=== PATIENT | female | born 1940 | race Caucasian/White ===

== ENCOUNTER 2019-09-07 14:02 | Emergency (ER) | payer MEDICARE ==
[~2019-09-07] VITALS: Ht 144.8 cm; Wt 61.2 kg
--- NOTE | 2019-09-07 15:39 | Diagnostic Imaging Report ---
EXAM: CHEST SINGLE (NOT PORTABLE) DATE: 09/07/2019 2:38 PM INDICATION: Shortness of breath COMPARISON: None FINDINGS: Left-sided pacing device identified with 2 subclavian coursing leads with tips terminating over the expected location of the right atrium and ventricle. The trachea is midline. There are mildly increased left basilar opacity suggestive of atelectasis. There is no evidence for large focal consolidation, pneumothorax, or significant pleural effusion. The cardiomediastinal silhouette is magnified by technique but otherwise unremarkable. Atherosclerotic calcifications are noted within the thoracic aorta. Degenerative changes noted of the visualized spine. No acute osseous abnormality is identified. IMPRESSION: Left basilar atelectasis. No other acute cardiopulmonary process identified. Signed by: Dr. Abdullahi Sue MD on 09/07/2019 3:35 PM
[2019-09-07 16:01] LABS: CLARITY,URINE SL CLOUDY (CLEAR); COLOR,URINE YELLOW (YELLOW); LEUKOCYTE ESTERASE ,URINE TRACE (NEGATIVE); NITRITE,URINE POSITIVE (NEGATIVE); PROTEIN,URINE DIPSTICK 1+ (NEGATIVE)
[2019-09-07 16:02] LABS: BILIRUBIN,URINE 1+ (NEGATIVE); KETONES,URINE TRACE (NEGATIVE); URINE UROBILINOGEN 1 mg/dL (0.2 - 1)
[2019-09-07 16:09] LABS: BACTERIA,URINE MODERATE /HPF; EPITHELIAL CELLS,URINE MODERATE /LPF
[2019-09-07] MEDS ORDERED: IPRATROPIUM BROMIDE 0.02% 2.5 ML NEB NEB STA (16:39)
[2019-09-07] MEDS ORDERED: METHYLPREDNISOLONE SOD SUCC 125 MG/2ML VIAL IV STA (16:39)
[2019-09-07] MEDS ORDERED: SODIUM CHLORIDE 0.9% 1000ML 1,000 ML IV STA (16:39)
[2019-09-07] MEDS ORDERED: ALBUTEROL SULF 0.083% NEB SOLN 3 ML NEB NEB STA (16:39)
[2019-09-07] MEDS ORDERED: LEVOFLOXACIN 500 MG TAB PO NR (16:45)
[2019-09-07] MEDS ORDERED: PREDNISONE 20 MG TAB PO NR (16:45)
[2019-09-07] MEDS ORDERED: LEVOFLOXACIN 250 MG TAB PO NR (16:45)
[2019-09-07 17:23] LABS: BASOPHILS % 0.1 % (0.0-1.0); HEMATOCRIT 31.9 % (34.2-44.1); HEMOGLOBIN 8.8 g/dL (12.0-16.0); LYMPHOCYTES # (AUTO) 0.3 (1.0-3.2); MEAN CORPUSCULAR HEMOGLOBIN 21.8 pg (28-32); MEAN CORPUSCULAR HGB CONC 27.6 g/dL (31-35); MEAN CORPUSCULAR VOLUME 79.2 fL (81-99); MONOCYTES # (AUTO) 0.8 (0.2-0.8); MONOCYTES % 4.6 % (4.4-11.3); NEUTROPHILS # (AUTO) 15.1 (2.1-6.9); NEUTROPHILS % 92.7 % (38.7-80.0); PLATELET COUNT 417 x10e3/uL (140-360); RED BLOOD COUNT 4.03 x10e6/uL (3.6-5.1); RED CELL DISTRIBUTION WIDTH 19.1 % (11.7-14.4)
[2019-09-07 17:27] LABS: INR 0.97; PROTHROMBIN TIME 13.4 seconds (11.9-14.5)
[2019-09-07 17:28] LABS: PARTIAL THROMBOPLASTIN TIME 26.5 seconds (23.8-35.5)
[2019-09-07 17:37] LABS: ALANINE AMINOTRANSFERASE 22 IU/L (0-55); ALBUMIN 3.5 g/dL (3.5-5.0); ALBUMIN/GLOBULIN RATIO 1.3 (0.8-2.0); ALKALINE PHOSPHATASE 55 IU/L (40-150); ANION GAP 13.5 mmol/L (8-16); BLOOD UREA NITROGEN 18 mg/dL (7-26); BUN/CREATININE RATIO 21 (6-25); CALCIUM 8.8 mg/dL (8.4-10.2); CARBON DIOXIDE 28 mmol/L (22-29); CHLORIDE 106 mmol/L (98-107); CREATINE KINASE 47 IU/L (29-168); CREATININE, SERUM 0.84 mg/dL (0.57-1.11); EST GLOMERULAR FILTRATION RATE > 60 ML/MIN (60-); GLUCOSE 173 mg/dL (74-118); POTASSIUM 3.5 mmol/L (3.5-5.1); SODIUM 144 mmol/L (136-145)
[2019-09-07 19:26] VITALS: BP 141/63
[2019-09-07 20:38] LABS: HYPOCHROMASIA MODERATE; RBC MORPHOLOGY COMMENT ABNORMAL
--- OUTSIDE RECORDS SUMMARY | 2019-09-10 13:34 | XMS REPORT ---
Author Author [facility] Address Unknown Phone Unavailable Care Team Providers Care Compensation Adjuster Name Role Phone TAYO MARTÍNEZ Unavailable Unavailable Payers Payer Name Policy Type Policy Number Effective Date Expiration Date Problems This patient has no known problems. Allergies, Adverse Reactions, Alerts Allergy Name Allergy Type Status Severity Reaction(s) Onset Date Inactive Date Treating Clinician Comments hydrocodone DA Active MO 2018-12-08 00:00:00 COLOGNES DA Active SV 2018-12-08 00:00:00 fire ant DA Active SV 2016-01-15 00:00:00 AEROSOL PRODUCTS LIKE AIR FRESHENER DA Active SV 2016-01-15 00:00:00 COLOGNES DA Active SV 2016-01-15 00:00:00 HERBAL BODY WASHES AND SPRAYS DA Active SV 2016-01-15 00:00:00 HOUSEHOLD CLEANING PRODUCTS DA Active SV 2016-01-15 00:00:00 LATEX GLOVES DA Active SV 2016-01-15 00:00:00 MSG DA Active SV 2016-01-15 00:00:00 PERFUMES DA Active SV 2016-01-15 00:00:00 SCENTED HAIR SPRAYS DA Active SV 2016-01-15 00:00:00 Medications This patient has no known medications. Results Test Description Test Time Test Comments Text Results Atomic Results Result Comments CHEST SINGLE (NOT PORTABLE) 2019-09-07 15:34:[address] [address] Patient Name: RONALD HALE MR #: [id number] : 1940 Age/Sex: 79/F Req #: [id number] Adm Physician: Ordered by: TAYO MARTÍNEZ MD, MD Report #: [id number] Location: ER Room/Bed: Procedure: [id number] DX/CHEST SINGLE (NOT PORTABLE) Exam Date: 09/07/19 Exam Time: 1510 REPORT STATUS: Signed EXAM: CHEST SINGLE (NOT PORTABLE) DATE: 09/07/2019 2:38 PM INDICATION: Shortness of breath COMPARISON: None FINDINGS: Left-sided pacing device identified with 2 subclavian coursing leads with tips terminating over the expected location of the right atrium and ventricle. The trachea is midline. There are mildly increased left basilar opacity suggestive of atelectasis. There is no evidence for large focal consolidation, pneumothorax, or significant pleural effusion. The cardiomediastinal silhouette is magnified by technique but otherwise unremarkable. Atherosclerotic calcifications are noted within the thoracic aorta. Degenerative changes noted of the visualized spine. No acute osseous abnormality is identified. IMPRESSION: Left basilar atelectasis. No other acute cardiopulmonary process identified. Signed by: Dr. Abdullahi Sue MD on 09/07/2019 3:35 PM Dictated By: ABDULLAHI SUE MD 153 Transcribed By: HAYLEE on 09/07/19 1535 COPY TO: TAYO MARTÍNEZ GLUBED 2018-12-11 18:03:00 GLUBED (test code=GLUBED) 234 MG/DL 74-106 CBC W/AUTO [id number] 05:58:00* Test Item Value Reference Range Comments WHITE BLOOD CELL (test code=WBC) 12.0 x10 3/uL 5.0-12.0 RED BLOOD CELL (test code=RBC) 3.77 x10 6/uL 4.20-5.40 HEMOGLOBIN (test code=HGB) 10.1 g/dL 12.0-16.0 HEMATOCRIT (test code=HCT) 35.3 % 36.0-46.0 MEAN CELL VOLUME (test code=MCV) 94 fL 81-99 MEAN CELL HGB (test code=MCH) 26.8 pg 27-31 MEAN CELL HGB CONCENTRATION (test code=MCHC) 28.6 g/dL 33-37 RED CELL DISTRIBUTION WIDTH (test code=RDW) 18.8 % 11.5-15.5 PLATELET COUNT (test code=PLT) 244 x10 3/uL 130-400 MEAN PLATELET VOLUME (test code=MPV) 9.0 fL 9.4-16.4 NEUTROPHIL % (test code=NT%) 89.9 % 43-65 IMMATURE GRANULOCYTE % (test code=IG%) 0.6 % 0.0-2.0 LYMPHOCYTE % (test code=LY%) 7.2 % 20.5-45.5 MONOCYTE % (test code=MO%) 2.3 % 5.5-11.7 EOSINOPHIL % (test code=EO%) 0.0 % 0.9-2.9 BASOPHIL % (test code=BA%) 0.0 % 0.2-1.0 NUCLEATED RBC % (test code=NRBC%) 0.0 % 0-1.0 NEUTROPHIL # (test code=NT#) 10.78 x10 3/uL 2.2-4.8 IMMATURE GRANULOCYTE # (test code=IG#) 0.07 x10 3/uL 0-0.03 LYMPHOCYTE # (test code=LY#) 0.86 x10 3/uL 1.3-2.9 MONOCYTE # (test code=MO#) 0.28 x10 3/uL 0.3-0.8 EOSINOPHIL # (test code=EO#) 0.00 x10 3/uL 0.0-0.2 BASOPHIL # (test code=BA#) 0.00 x10 3/uL 0.0-0.1 PLATELET ESTIMATE (test code=PLTEST) ADEQUATE ADEQUATE PLATELET MORPHOLOGY (test code=PLTMORPH) NORMAL NORMAL DIFFERENTIAL [id number] 05:58:00* Test Item Value Reference Range Comments ANISOCYTOSIS (test code=ANISO) 1+ NONE SEEN MICROCYTOSIS (test code=MICR) 1+ NONE SEEN BASIC METABOLIC [id number] 05:46:00* Test Item Value Reference Range Comments SODIUM (test code=NA) 138 mmol/L 137-145 POTASSIUM (test code=K) 3.9 mmol/L 3.4-5.0 CHLORIDE (test code=CL) 99 mmol/L 98-107 CARBON DIOXIDE (test code=CO2) 36 mmol/L 22-30 GLUCOSE (test code=GLU) 181 mg/dL 74-106 BLOOD UREA NITROGEN (test code=BUN) 19 mg/dL 7-17 GLOMERULAR FILTRATION RATE (test code=GFR) >=60 max estimate >60 The estimated glomerular filtration rate is computed usingpatient race, age (>18), sex, and serum creatinine. If anyof the needed data elements are missing the Laboratory cannot compute an estimation of the glomerular filtration rate. CREATININE (test code=CREAT) 0.7 mg/dL 0.5-1.0 CALCIUM (test code=CA) 8.2 mg/dL 8.4-10.2 CBC W/AUTO [id number] 05:32:00* Test Item Value Reference Range Comments WHITE BLOOD CELL (test code=WBC) 12.0 x10 3/uL 5.0-12.0 RED BLOOD CELL (test code=RBC) 3.77 x10 6/uL 4.20-5.40 HEMOGLOBIN (test code=HGB) 10.1 g/dL 12.0-16.0 HEMATOCRIT (test code=HCT) 35.3 % 36.0-46.0 MEAN CELL VOLUME (test code=MCV) 94 fL 81-99 MEAN CELL HGB (test code=MCH) 26.8 pg 27-31 MEAN CELL HGB CONCENTRATION (test code=MCHC) 28.6 g/dL 33-37 RED CELL DISTRIBUTION WIDTH (test code=RDW) 18.8 % 11.5-15.5 PLATELET COUNT (test code=PLT) 244 x10 3/uL 130-400 MEAN PLATELET VOLUME (test code=MPV) 9.0 fL 9.4-16.4 NEUTROPHIL % (test code=NT%) 89.9 % 43-65 IMMATURE GRANULOCYTE % (test code=IG%) 0.6 % 0.0-2.0 LYMPHOCYTE % (test code=LY%) 7.2 % 20.5-45.5 MONOCYTE % (test code=MO%) 2.3 % 5.5-11.7 EOSINOPHIL % (test code=EO%) 0.0 % 0.9-2.9 BASOPHIL % (test code=BA%) 0.0 % 0.2-1.0 NUCLEATED RBC % (test code=NRBC%) 0.0 % 0-1.0 NEUTROPHIL # (test code=NT#) 10.78 x10 3/uL 2.2-4.8 IMMATURE GRANULOCYTE # (test code=IG#) 0.07 x10 3/uL 0-0.03 LYMPHOCYTE # (test code=LY#) 0.86 x10 3/uL 1.3-2.9 MONOCYTE # (test code=MO#) 0.28 x10 3/uL 0.3-0.8 EOSINOPHIL # (test code=EO#) 0.00 x10 3/uL 0.0-0.2 BASOPHIL # (test code=BA#) 0.00 x10 3/uL 0.0-0.1 CBC W/AUTO [id number] 05:32:00* Test Item Value Reference Range Comments WHITE BLOOD CELL (test code=WBC) 12.0 x10 3/uL 5.0-12.0 RED BLOOD CELL (test code=RBC) 3.77 x10 6/uL 4.20-5.40 HEMOGLOBIN (test code=HGB) 10.1 g/dL 12.0-16.0 HEMATOCRIT (test code=HCT) 35.3 % 36.0-46.0 MEAN CELL VOLUME (test code=MCV) 94 fL 81-99 MEAN CELL HGB (test code=MCH) 26.8 pg 27-31 MEAN CELL HGB CONCENTRATION (test code=MCHC) 28.6 g/dL 33-37 RED CELL DISTRIBUTION WIDTH (test code=RDW) 18.8 % 11.5-15.5 PLATELET COUNT (test code=PLT) 244 x10 3/uL 130-400 MEAN PLATELET VOLUME (test code=MPV) 9.0 fL 9.4-16.4 NEUTROPHIL % (test code=NT%) 89.9 % 43-65 IMMATURE GRANULOCYTE % (test code=IG%) 0.6 % 0.0-2.0 LYMPHOCYTE % (test code=LY%) 7.2 % 20.5-45.5 MONOCYTE % (test code=MO%) 2.3 % 5.5-11.7 EOSINOPHIL % (test code=EO%) 0.0 % 0.9-2.9 BASOPHIL % (test code=BA%) 0.0 % 0.2-1.0 NUCLEATED RBC % (test code=NRBC%) 0.0 % 0-1.0 NEUTROPHIL # (test code=NT#) 10.78 x10 3/uL 2.2-4.8 IMMATURE GRANULOCYTE # (test code=IG#) 0.07 x10 3/uL 0-0.03 LYMPHOCYTE # (test code=LY#) 0.86 x10 3/uL 1.3-2.9 MONOCYTE # (test code=MO#) 0.28 x10 3/uL 0.3-0.8 EOSINOPHIL # (test code=EO#) 0.00 x10 3/uL 0.0-0.2 BASOPHIL # (test code=BA#) 0.00 x10 3/uL 0.0-0.1 [id number] 17:49:00* Test Item Value Reference Range Comments GLUBED (test code=GLUBED) 109 MG/DL 74-106 [id number] 15:14:00* Test Item Value Reference Range Comments ACT-ISTAT (test code=ACTI) 109 SEC 74-125 [id number] 15:00:00* Test Item Value Reference Range Comments GLUBED (test code=GLUBED) 160 MG/DL 74-106 [id number] 14:44:00* Test Item Value Reference Range Comments ACT-ISTAT (test code=ACTI) 246 SEC 74-125 [id number] 14:44:00* Test Item Value Reference Range Comments ACT-ISTAT (test code=ACTI) 219 SEC 74-125 [id number] 14:44:00* Test Item Value Reference Range Comments ACT-ISTAT (test code=ACTI) 120 SEC 74-125 CBC W/AUTO [id number] 18:17:00* Test Item Value Reference Range Comments WHITE BLOOD CELL (test code=WBC) 11.0 x10 3/uL 5.0-12.0 RED BLOOD CELL (test code=RBC) 4.05 x10 6/uL 4.20-5.40 HEMOGLOBIN (test code=HGB) 10.9 g/dL 12.0-16.0 HEMATOCRIT (test code=HCT) 38.3 % 36.0-46.0 MEAN CELL VOLUME (test code=MCV) 95 fL 81-99 MEAN CELL HGB (test code=MCH) 26.9 pg 27-31 MEAN CELL HGB CONCENTRATION (test code=MCHC) 28.5 g/dL 33-37 RED CELL DISTRIBUTION WIDTH (test code=RDW) 17.3 % 11.5-15.5 PLATELET COUNT (test code=PLT) 306 x10 3/uL 130-400 MEAN PLATELET VOLUME (test code=MPV) 9.3 fL 9.4-16.4 NEUTROPHIL % (test code=NT%) 91.0 % 43-65 IMMATURE GRANULOCYTE % (test code=IG%) 0.7 % 0.0-2.0 LYMPHOCYTE % (test code=LY%) 6.5 % 20.5-45.5 MONOCYTE % (test code=MO%) 1.7 % 5.5-11.7 EOSINOPHIL % (test code=EO%) 0.0 % 0.9-2.9 BASOPHIL % (test code=BA%) 0.1 % 0.2-1.0 NUCLEATED RBC % (test code=NRBC%) 0.0 % 0-1.0 NEUTROPHIL # (test code=NT#) 10.01 x10 3/uL 2.2-4.8 IMMATURE GRANULOCYTE # (test code=IG#) 0.08 x10 3/uL 0-0.03 LYMPHOCYTE # (test code=LY#) 0.72 x10 3/uL 1.3-2.9 MONOCYTE # (test code=MO#) 0.19 x10 3/uL 0.3-0.8 EOSINOPHIL # (test code=EO#) 0.00 x10 3/uL 0.0-0.2 BASOPHIL # (test code=BA#) 0.01 x10 3/uL 0.0-0.1 PLATELET ESTIMATE (test code=PLTEST) ADEQUATE ADEQUATE DIFFERENTIAL [id number] 18:17:00* Test Item Value Reference Range Comments POLYCHROMASIA (test code=POLC) 1+ NONE SEEN ANISOCYTOSIS (test code=ANISO) 1+ NONE SEEN MICROCYTOSIS (test code=MICR) 1+ NONE SEEN ELLIPTOCYTES (test code=ELL) 1+ NONE SEEN BASIC METABOLIC [id number] 17:30:00* Test Item Value Reference Range Comments SODIUM (test code=NA) 139 mmol/L 137-145 POTASSIUM (test code=K) 4.4 mmol/L 3.4-5.0 CHLORIDE (test code=CL) 100 mmol/L 98-107 CARBON DIOXIDE (test code=CO2) 36 mmol/L 22-30 GLUCOSE (test code=GLU) 174 mg/dL 74-106 BLOOD UREA NITROGEN (test code=BUN) 26 mg/dL 7-17 GLOMERULAR FILTRATION RATE (test code=GFR) >=60 max estimate >60 The estimated glomerular filtration rate is computed usingpatient race, age (>18), sex, and serum creatinine. If anyof the needed data elements are missing the Laboratory cannot compute an estimation of the glomerular filtration rate. CREATININE (test code=CREAT) 0.7 mg/dL 0.5-1.0 CALCIUM (test code=CA) 8.5 mg/dL 8.4-10.2 [id number] 17:30:00* Test Item Value Reference Range Comments MAGNESIUM (test code=MAG) 1.9 mg/dL 1.6-2.3 - XR CHEST 2 [id number] 17:26:00 FAX: Joe Quesada [phone] [place]: St: PRE Name: RONALD DAWN [facility] : [birth year] Age/S: 78/F [id number] Unit #: [id number] Loc: [place] [place] [id number] Phys: Joe Maldonado MD Acct: [id number] Dis Date: Status: PRE IN PHONE #: [phone] Exam Date: 12/08/2018 2921 FAX #: [phone] Reason: PREOP EXAMS: CPT CODE: [id number] XR CHEST 2 V 44704 C3 TIME OF STUDY: 2:24 PM REASON FOR EXAM: PREOP COM PARISON: January 15, 2016 FINDINGS: PA and lateral upright views o f the chest were obtained. Lungs: Lungs are hyperaerated with fla ttened hemidiaphragm. No mass, or consolidation. Normal pulmonary vascula rity. Pleura: No pleural effusion or pneumothorax. Heart and Mediastinum: Normal cardiomediastinal silhouette and christofer cific atherosclerosis. Bones: Normal regional skeletal structures. IMPRESSION: 1. Findings of obstructive lung d isease. No focal consolidation. at 3243 Reported and signed by: Kalin Gong MD CC: Joe Maldonado MD Technologist: Catrachita Barnett Trnscrd Date/Time/By: 12/08/2018 (6131) : By: [email or web address] PAGE 1 Signed Report FAX: Joe Quesada [phone] [place]: St: PRE Name: RONALD HALE [facility] : 1940 Age/S: 78/F [address] Unit #: [id number] Loc: [place] [address] Phys: Joe Maldonado MD Acct: [id number] Dis Date: Status: PRE IN PHONE #: [phone] Exam Date: 12/08 1548 FAX #: [phone] Reason: PREOP EXAMS: CPT CODE: [id number] XR CHEST 2 V [id number] <Continued> Orig Print D/T: S: 12/08/2018 (0380) PAGE 2 Signed Report BASIC METABOLIC [id number] 17:19:00* Test Item Value Reference Range Comments SODIUM (test code=NA) 139 mmol/L 137-145 POTASSIUM (test code=K) 4.4 mmol/L 3.4-5.0 CHLORIDE (test code=CL) 100 mmol/L 98-107 CARBON DIOXIDE (test code=CO2) 36 mmol/L 22-30 GLUCOSE (test code=GLU) 174 mg/dL 74-106 BLOOD UREA NITROGEN (test code=BUN) 26 mg/dL 7-17 GLOMERULAR FILTRATION RATE (test code=GFR) >=60 max estimate >60 The estimated glomerular filtration rate is computed usingpatient race, age (>18), sex, and serum creatinine. If anyof the needed data elements are missing the Laboratory cannot compute an estimation of the glomerular filtration rate. CREATININE (test code=CREAT) 0.7 mg/dL 0.5-1.0 CALCIUM (test code=CA) 8.5 mg/dL 8.4-10.2 [id number] 17:19:00* Test Item Value Reference Range Comments MAGNESIUM (test code=MAG) mg/dL 1.6-2.3 PROTHROMBIN [id number] 17:14:00* Test Item Value Reference Range Comments PROTHROMBIN TIME PATIENT (test code=PTP) 11.1 SECONDS 9.2-12.1 INTERNATIONAL NORMAL RATIO (test code=INR) 1.0 The INR is to be used only for monitoring ORAL ANTICOAGULANTTHERAPY. Indication INR Value1. Prophylaxis/treatment of: Venous Thrombosis, Pulmonary Embolism 2.0 - 3.02. Prevention of systemic embolism from: Tissue heart valves 2.0 - 3.0 Acute myocardial infarction (to present systemic embolism)* 2.0 - 3.0 Valvular heart disease 2.0 - 3.0 Atrial fibrillation 2.0 - 3.03. Mechanical prosthetic valves (high risk) 2.5 - 3.5 * If oral anticoagulant therapy is elected to preventrecurrent myocardial infarction, an INR of 2.5-3.5 isrecommended, consistent with Food and Drug Administrationrecommendations. IS PATIENT ON ANTICOAGULANTS ? [facility] Comments: PREOPTHROMBOPLASTIN TIME PARTIAL 2018-12-08 17:14:00* Test Item Value Reference Range Comments THROMBOPLASTIN TIME PARTIAL (test code=PTT) 25.0 SECONDS 23.4-37.0 Therapeutic Range for Heparin EFFECTIVE 03/31/13 Heparin IU/mL aPTT Seconds0.3 64.30.7 88.8 IS PATIENT ON ANTICOAGULANTS ? [facility] Comments: PREOPCBC W/AUTO [id number] 17:11:00* Test Item Value Reference Range Comments WHITE BLOOD CELL (test code=WBC) 11.0 x10 3/uL 5.0-12.0 RED BLOOD CELL (test code=RBC) 4.05 x10 6/uL 4.20-5.40 HEMOGLOBIN (test code=HGB) 10.9 g/dL 12.0-16.0 HEMATOCRIT (test code=HCT) 38.3 % 36.0-46.0 MEAN CELL VOLUME (test code=MCV) 95 fL 81-99 MEAN CELL HGB (test code=MCH) 26.9 pg 27-31 MEAN CELL HGB CONCENTRATION (test code=MCHC) 28.5 g/dL 33-37 RED CELL DISTRIBUTION WIDTH (test code=RDW) 17.3 % 11.5-15.5 PLATELET COUNT (test code=PLT) 306 x10 3/uL 130-400 MEAN PLATELET VOLUME (test code=MPV) 9.3 fL 9.4-16.4 NEUTROPHIL % (test code=NT%) 91.0 % 43-65 IMMATURE GRANULOCYTE % (test code=IG%) 0.7 % 0.0-2.0 LYMPHOCYTE % (test code=LY%) 6.5 % 20.5-45.5 MONOCYTE % (test code=MO%) 1.7 % 5.5-11.7 EOSINOPHIL % (test code=EO%) 0.0 % 0.9-2.9 BASOPHIL % (test code=BA%) 0.1 % 0.2-1.0 NUCLEATED RBC % (test code=NRBC%) 0.0 % 0-1.0 NEUTROPHIL # (test code=NT#) 10.01 x10 3/uL 2.2-4.8 IMMATURE GRANULOCYTE # (test code=IG#) 0.08 x10 3/uL 0-0.03 LYMPHOCYTE # (test code=LY#) 0.72 x10 3/uL 1.3-2.9 MONOCYTE # (test code=MO#) 0.19 x10 3/uL 0.3-0.8 EOSINOPHIL # (test code=EO#) 0.00 x10 3/uL 0.0-0.2 BASOPHIL # (test code=BA#) 0.01 x10 3/uL 0.0-0.1 CBC W/AUTO [id number] 17:11:00* Test Item Value Reference Range Comments WHITE BLOOD CELL (test code=WBC) 11.0 x10 3/uL 5.0-12.0 RED BLOOD CELL (test code=RBC) 4.05 x10 6/uL 4.20-5.40 HEMOGLOBIN (test code=HGB) 10.9 g/dL 12.0-16.0 HEMATOCRIT (test code=HCT) 38.3 % 36.0-46.0 MEAN CELL VOLUME (test code=MCV) 95 fL 81-99 MEAN CELL HGB (test code=MCH) 26.9 pg 27-31 MEAN CELL HGB CONCENTRATION (test code=MCHC) 28.5 g/dL 33-37 RED CELL DISTRIBUTION WIDTH (test code=RDW) 17.3 % 11.5-15.5 PLATELET COUNT (test code=PLT) 306 x10 3/uL 130-400 MEAN PLATELET VOLUME (test code=MPV) 9.3 fL 9.4-16.4 NEUTROPHIL % (test code=NT%) 91.0 % 43-65 IMMATURE GRANULOCYTE % (test code=IG%) 0.7 % 0.0-2.0 LYMPHOCYTE % (test code=LY%) 6.5 % 20.5-45.5 MONOCYTE % (test code=MO%) 1.7 % 5.5-11.7 EOSINOPHIL % (test code=EO%) 0.0 % 0.9-2.9 BASOPHIL % (test code=BA%) 0.1 % 0.2-1.0 NUCLEATED RBC % (test code=NRBC%) 0.0 % 0-1.0 NEUTROPHIL # (test code=NT#) 10.01 x10 3/uL 2.2-4.8 IMMATURE GRANULOCYTE # (test code=IG#) 0.08 x10 3/uL 0-0.03 LYMPHOCYTE # (test code=LY#) 0.72 x10 3/uL 1.3-2.9 MONOCYTE # (test code=MO#) 0.19 x10 3/uL 0.3-0.8 EOSINOPHIL # (test code=EO#) 0.00 x10 3/uL 0.0-0.2 BASOPHIL # (test code=BA#) 0.01 x10 3/uL 0.0-0.1
[2019-10-02] MEDS ORDERED: NORCO 10-325 T1 EACH PO (04:46)
[2019-10-11] MEDS ORDERED: XOPENEX0.63 MG/3 INH (09:37)
[2019-10-11] MEDS ORDERED: PREDNISONE10 MG PO (09:53)
[2019-10-11] MEDS ORDERED: XOPENEX INH (09:53)
== END 2019-09-07 19:32 | disposition home or self-care (01) ==
LOC: ER 14:02
DX: R06.00 Dyspnea, unspecified (principal); J44.1 Chronic obstructive pulmonary disease with (acute) exacerbation; N30.90 Cystitis, unspecified without hematuria; D72.825 Bandemia; D72.829 Elevated white blood cell count, unspecified; I10 Essential (primary) hypertension; E11.9 Type 2 diabetes mellitus without complications
CPT/HCPCS: 36415; 71045; 80053; 81001; 82550; 82553; 83880; 84484; 85025; 85610; 85730; 93005; 99284

== ENCOUNTER 2019-10-19 06:31 | Emergency (ER) | payer MEDICARE ==
[~2019-10-19] VITALS: Ht 144.8 cm; Wt 62.1 kg
[~2019-10-19 06:31] MED LIST: NORCO 10-325 T1 EACH PO; PREDNISONE10 MG PO; XOPENEX INH; XOPENEX0.63 MG/3 INH
[2019-10-19] MEDS ORDERED: ALBUTEROL SULF 0.083% NEB SOLN 3 ML NEB NEB STA (06:38)
[2019-10-19] MEDS ORDERED: IPRATROPIUM BROMIDE 0.02% 2.5 ML NEB NEB ONE (06:45)
--- NOTE | 2019-10-19 07:13 | NUR ---
RT CALLED AND NOTIFIED FOR BREATHING TREATMENT.
--- NOTE | 2019-10-19 07:15 | Diagnostic Imaging Report ---
EXAMINATION: CHEST SINGLE (PORTABLE) COMPARISON: Chest x-ray 10/09/2019, chest x-ray 10/06/2019 INDICATION: Shortness of breath ^sob ^[id number] ^0658 ^Y DISCUSSION: Frontal view of the chest obtained at 0658 hours. HEART AND MEDIASTINUM: Stable cardiomegaly and calcifications of the aortic arch. Cardiac valvular calcifications are similar. Central pulmonary vascular prominence has diminished. LINES: Pacemaker wires terminate in the right atrium and right ventricle LUNGS: Diffuse hyperinflation consistent with COPD. Small focus of left basilar airspace disease. PLEURA: Trace blunting of the right lateral costophrenic angle is stable. No pneumothorax. BONES AND SOFT TISSUES: Stable degenerative changes. The soft tissues are normal. IMPRESSION: Stable cardiomegaly. Improved vascular congestion. Pulmonary hyperinflation consistent with COPD. Small focus of airspace disease in the left lung base may represent atelectasis or pneumonia. Tiny right pleural effusion versus pleural thickening. Signed by: Dr. Jamaica Martin MD on 10/19/2019 7:12 AM
[2019-10-19 07:19] LABS: BASOPHILS % 0.1 % (0.0-1.0); EOSINOPHILS % 0.1 % (0.0-6.0); HEMATOCRIT 35.9 % (34.2-44.1); HEMOGLOBIN 10.2 g/dL (12.0-16.0); LYMPHOCYTES # (AUTO) 0.5 (1.0-3.2); LYMPHOCYTES % 5.3 % (18.0-39.1); MEAN CORPUSCULAR HEMOGLOBIN 22.9 pg (28-32); MEAN CORPUSCULAR HGB CONC 28.4 g/dL (31-35); MEAN CORPUSCULAR VOLUME 80.5 fL (81-99); MONOCYTES # (AUTO) 0.4 (0.2-0.8); MONOCYTES % 4.4 % (4.4-11.3); NEUTROPHILS # (AUTO) 8.1 (2.1-6.9); NEUTROPHILS % 89.3 % (38.7-80.0); PLATELET COUNT 168 x10e3/uL (140-360); RED BLOOD COUNT 4.46 x10e6/uL (3.6-5.1); RED CELL DISTRIBUTION WIDTH 21.3 % (11.7-14.4)
[2019-10-19 07:38] LABS: ALANINE AMINOTRANSFERASE 31 IU/L (0-55); ALBUMIN 3.2 g/dL (3.5-5.0); ALBUMIN/GLOBULIN RATIO 1.3 (0.8-2.0); ALKALINE PHOSPHATASE 51 IU/L (40-150); ANION GAP 13.4 mmol/L (8-16); BLOOD UREA NITROGEN 22 mg/dL (7-26); BUN/CREATININE RATIO 29 (6-25); CALCIUM 9.4 mg/dL (8.4-10.2); CARBON DIOXIDE 32 mmol/L (22-29); CHLORIDE 103 mmol/L (98-107); CREATINE KINASE 35 IU/L (29-168); CREATININE, SERUM 0.76 mg/dL (0.57-1.11); EST GLOMERULAR FILTRATION RATE > 60 ML/MIN (60-); GLUCOSE 189 mg/dL (74-118); POTASSIUM 3.4 mmol/L (3.5-5.1); SODIUM 145 mmol/L (136-145)
[2019-10-19] MEDS ORDERED: FUROSEMIDE INJ 10 MG/ML 4 ML VIAL IV ONE (09:15)
[2019-10-19] MEDS ORDERED: FUROSEMIDE 40 MG TAB PO ONE (09:30)
== END 2019-10-19 10:52 | disposition home or self-care (01) ==
LOC: ER 06:31
DX: R06.00 Dyspnea, unspecified (principal); R05 Cough; I27.9 Pulmonary heart disease, unspecified; I50.22 Chronic systolic (congestive) heart failure; I50.1 Left ventricular failure, unspecified
CPT/HCPCS: 36415; 71045; 80053; 82550; 82553; 83880; 84484; 85025; 93005; 94640; 99284

== ENCOUNTER 2019-11-14 09:58 | Inpatient (IN) | payer MEDICARE ==
[~2019-11-14] VITALS: Ht 144.8 cm; Wt 62.1 kg
[2019-11-14] MEDS ORDERED: METHYLPREDNISOLONE SOD SUCC 125 MG/2ML VIAL IV ONE (10:12)
[2019-11-14] MEDS ORDERED: ALBUTEROL/IPRATROPIUM 3 ML NEB NEB ONE (10:15)
--- NOTE | 2019-11-14 10:30 | NUR ---
R.T. CALLED FOR BREATHING TREATMENT
[2019-11-14 10:57] LABS: STREPTOCOCCUS GRP A ANTIGEN NEGATIVE (NEGATIVE)
[2019-11-14 11:06] LABS: BASOPHILS % 0.1 % (0.0-1.0); EOSINOPHILS % 0.3 % (0.0-6.0); HEMOGLOBIN 9.8 g/dL (12.0-16.0); LYMPHOCYTES # (AUTO) 1.6 (1.0-3.2); LYMPHOCYTES % 21.2 % (18.0-39.1); MEAN CORPUSCULAR HEMOGLOBIN 23.8 pg (28-32); MEAN CORPUSCULAR HGB CONC 28.8 g/dL (31-35); MEAN CORPUSCULAR VOLUME 82.7 fL (81-99); MONOCYTES # (AUTO) 0.8 (0.2-0.8); MONOCYTES % 10.7 % (4.4-11.3); NEUTROPHILS % 66.5 % (38.7-80.0); PLATELET COUNT 345 x10e3/uL (140-360); RED BLOOD COUNT 4.11 x10e6/uL (3.6-5.1); RED CELL DISTRIBUTION WIDTH 22.1 % (11.7-14.4)
[2019-11-14 11:08] LABS: INFLUENZAE A&B ANTIGEN (RAPID) NEGATIVE (NEGATIVE)
[2019-11-14 11:17] LABS: INR 0.88; PROTHROMBIN TIME 12.4 seconds (11.9-14.5)
[2019-11-14 11:18] LABS: PARTIAL THROMBOPLASTIN TIME 26.2 seconds (23.8-35.5)
[2019-11-14 11:26] LABS: ALANINE AMINOTRANSFERASE 16 IU/L (0-55); ALBUMIN 3.4 g/dL (3.5-5.0); ALBUMIN/GLOBULIN RATIO 1.3 (0.8-2.0); ALKALINE PHOSPHATASE 107 IU/L (40-150); ANION GAP 13.7 mmol/L (8-16); BLOOD UREA NITROGEN 19 mg/dL (7-26); BUN/CREATININE RATIO 23 (6-25); CALCIUM 8.5 mg/dL (8.4-10.2); CARBON DIOXIDE 37 mmol/L (22-29); CHLORIDE 100 mmol/L (98-107); CREATINE KINASE 29 IU/L (29-168); CREATININE, SERUM 0.81 mg/dL (0.57-1.11); EST GLOMERULAR FILTRATION RATE > 60 ML/MIN (60-); GLUCOSE 155 mg/dL (74-118); MAGNESIUM 1.5 MG/DL (1.3-2.1); SODIUM 148 mmol/L (136-145)
--- NOTE | 2019-11-14 11:26 | Diagnostic Imaging Report ---
Exam: Head CT without contrast History: Numbness and tingling to extremities Comparison studies: None Technique: Axial images were obtained from the skull base to the vertex. Coronal and sagittal images reconstructed from the axial data. Dose modulation, iterative reconstruction, and/or weight based adjustment of the mA/kV was utilized to reduce the radiation dose to as low as reasonably achievable. Radiation dose: Total DLP: 921 mGy*cm. Estimated effective dose: DLP x 0.015 Intravenous contrast: None Findings: Scalp: No abnormalities. Bones: No fractures, blastic or lytic lesions. Brain sulci: Prominent but age-a propria. Ventricles: Normal in size and configuration. No hydrocephalus. Extra-axial spaces: No masses, no fluid collection. Parenchyma: No abnormal densities. No masses, acute hemorrhage, acute or chronic vascular insults. Sellar/suprasellar region: No abnormalities. Craniocervical junction: Patent foramen magnum. No Chiari one malformation. Incidental findings: Partial nonspecific left mastoid opacification. Atherosclerotic calcifications in the carotid siphons an in the left intradural vertebral artery. IMPRESSION: No acute intracranial abnormalities. Signed by: Dr. Ti Shukla M.D. on 11/14/2019 11:24 AM
[2019-11-14 11:37] LABS: POTASSIUM 2.7 mmol/L (3.5-5.1)
[2019-11-14] MEDS ORDERED: POTASSIUM CHLORIDE 20 MEQ TAB CR PO STA (11:44)
[2019-11-14 11:45] LABS: THYROID STIMULATING HORMONE 2.295 uIU/mL (0.350-4.940)
--- NOTE | 2019-11-14 11:54 | Diagnostic Imaging Report ---
EXAMINATION: CHEST SINGLE (PORTABLE) INDICATION: ^cough, sob ^[id number] ^1100 COMPARISON: 10/03/19 FINDINGS: LINES: Pacemaker wires terminate in the right atrium and right ventricle HEART AND MEDIASTINUM: Stable cardiomegaly and calcifications of the aortic arch. Cardiac valvular calcifications are similar. Central pulmonary vascular prominence is unchanged. LUNGS: Diffuse hyperinflation consistent with COPD. Bibasilar atelectasis have increased from prior exam. PLEURA: Trace blunting of the left lateral costophrenic angle likely due to combination of effusion and atelectasis.. No pneumothorax. BONES AND SOFT TISSUES: Stable degenerative changes. The soft tissues are normal. IMPRESSION: Bibasilar atelectasis have increased from prior exam. Trace blunting of the left lateral costophrenic angle likely due to combination of effusion and atelectasis Signed by: Job Castillo MD on 11/14/2019 11:52 AM
[2019-11-14] MEDS ORDERED: TRELEGY ELLIPT1 EACH INH (12:04)
[2019-11-14] MEDS ORDERED: LASIX20 MG PO (12:07)
[2019-11-14] MEDS ORDERED: ZOFRAN4 MG PO (12:07)
[2019-11-14] MEDS ORDERED: NASONEX17 GM (12:07)
[2019-11-14] MEDS ORDERED: CLOPIDOGREL75 MG PO (12:07)
[2019-11-14] MEDS ORDERED: CLONIDINE HCL0.1 MG PO (12:07)
[2019-11-14] MEDS ORDERED: DILTIAZEM HCL30 MG PO (12:07)
[2019-11-14 12:13] LABS: ANISOCYTOSIS SLIGHT; HYPOCHROMASIA SLIGHT; RBC MORPHOLOGY COMMENT ABNORMAL
[2019-11-14] MEDS: AZITHROMYCIN 500MG/NS 250 ML 250 ML IV SCH (13:46)
[2019-11-14] MEDS ORDERED: METHYLPREDNISOLONE SOD SUCC 125 MG/2ML VIAL IV SCH ×2 (14:00→21:00)
[2019-11-14 14:29] LABS: ABG PCO2 32 mmHg (41-51); ABG PH 7.67 (7.31-7.41)
[2019-11-14 14:30] LABS: ABG HCO3 37 mmol/L (23-28); ABG PO2 47 mmHg (80-105)
[2019-11-14] MEDS ORDERED: ZOLPIDEM TARTRATE 5 MG TAB PO PRN (15:00)
[2019-11-14] MEDS ORDERED: HYDROCODONE/APAP 10MG-325MG TAB PO PRN (15:00)
[2019-11-14] MEDS ORDERED: FUROSEMIDE INJ 10 MG/ML 2 ML VIAL IV ONE (15:00)
[2019-11-14] MEDS ORDERED: LEVALBUTEROL HCL SOLN NEBU 0.63 MG/3 ML NEB INH PRN (15:00)
--- NOTE | 2019-11-14 15:25 | NUR ---
DR. GLEZ EVALUATING PATIENT
[2019-11-14] MEDS ORDERED: POTASSIUM CHLORIDE 10MEQ/100ML 100 ML IV SCH (15:30)
[2019-11-14] MEDS: ALBUTEROL/IPRATROPIUM 3 ML NEB NEB SCH ×3 (16:25→22:45)
--- NOTE | 2019-11-14 17:41 | NUR ---
PHARMACY CALLED TO TAKE PATIENT MEDS TO FLOOR
--- NOTE | 2019-11-14 18:20 | NUR ---
LAB NOTIFIED, PATIENT CARDIAC DUE, PATIENT TO ROOM 205
[2019-11-14 18:37] VITALS: BP 155/67
[2019-11-14 18:45] LABS: CREATINE KINASE MB 3.6 ng/mL (0-5.0)
--- NOTE | 2019-11-14 18:56 | NUR ---
PT TO THE FLOOR AT 1840.
[2019-11-14] MEDS: POTASSIUM CHLORIDE 10MEQ/100ML 100 ML IV SCH ×2 (20:00→21:20)
[2019-11-14] MEDS ORDERED: SODIUM CHLORIDE 0.9% 500ML 500 ML ONE (20:04)
[2019-11-14 20:36] VITALS: BP 155/67
[2019-11-14] MEDS: METHYLPREDNISOLONE SOD SUCC 40 MG/ML VIAL 1ML IV SCH (21:59)
[2019-11-14 22:34] VITALS: BP 155/67
--- NOTE | 2019-11-14 22:37 | Consultation ---
DATE OF CONSULTATION: Pulmonary Critical Care Consultation CHIEF COMPLAINT: Shakiness and paraesthesias along with dyspnea. HISTORY OF PRESENT ILLNESS: The patient is a 79-year-old woman. She has a history of systolic cardiomyopathy, congestive heart failure, COPD. She uses Trelegy at home as well as an albuterol nebulizer. She also has a noninvasive ventilator and oxygen at home. The patient now complains of some shaking. She also noticed some paresthesias in her arms and legs. She had some dyspnea. She did not complain of chest pain. She had no fevers or cough. PAST SURGICAL HISTORY: 1. Status post cholecystectomy. 2. Status post knee replacements. 3. Status post appendectomy. 4. Status post hysterectomy. PAST MEDICAL HISTORY: 1. Diabetes. 2. Hypertension. 3. COPD. 4. Congestive heart failure. FAMILY HISTORY: History of heart disease, hypertension, diabetes. SOCIAL HISTORY: The patient quit smoking. She is not an active drinker. ALLERGIES: THE PATIENT IS ALLERGIC TO LATEX. REVIEW OF SYSTEMS: The patient is afebrile. She has no headache. She is not complaining of any neck pain. She has no chest pain. She is not having any cough. She does note some dyspnea. She has no abdominal pain. She has no nausea or vomiting. She does have mild leg swelling. PHYSICAL EXAMINATION: VITAL SIGNS: The patient is afebrile. Blood pressure is 150/80, saturation is 100%, pulse is 84. HEENT: Shows no facial swelling or erythema. The nasal mucosa is normal. The oropharynx is normal. LYMPHATIC: Shows no submandibular, cervical, or supraclavicular adenopathy. CARDIAC: Reveals a regular rate and rhythm with normal S1 and S2. LUNGS: Auscultation of lungs reveals clear breath sounds bilaterally. There is no wheezing. ABDOMEN: Soft and nontender. There is no rebound or guarding. EXTREMITIES: Show 1 to 2+ edema. LABORATORY DATA: White blood cell count is 7.5, hemoglobin is 9.8, and platelet count is 345. BUN to creatinine ratio is 19 to 0.81. The potassium is 2.7. The BNP is 614. RADIOGRAPHIC DATA: Chest x-ray shows bibasilar atelectasis. There are some trace pleural effusions. IMPRESSION: 1. Chronic obstructive pulmonary disease with acute exacerbation. 2. Chronic systolic congestive heart failure. 3. Hypokalemia. 4. Hypernatremia. 5. Hypertension. 6. Diabetes. PLAN: 1. Continue inhalers and oxygen. 2. Lasix x1 dose. 3. Continue prior cardiac regimen. 4. Replace potassium. MD GILSON Duran/MODL /[id number]
[2019-11-15] VITALS (8 sets, daily range): BP systolic 112–186; BP diastolic 53–117
--- NOTE | 2019-11-15 00:04 | NUR ---
BP RECHECKED 156/65 [facility].
[2019-11-15] MEDS: ALBUTEROL/IPRATROPIUM 3 ML NEB NEB SCH ×2 (02:45→07:15)
[2019-11-15] MEDS ORDERED: HUMALOG100 UNIT/3 (03:53)
[2019-11-15 05:12] LABS: BASOPHILS % 0.1 % (0.0-1.0); HEMOGLOBIN 8.8 g/dL (12.0-16.0); LYMPHOCYTES # (AUTO) 0.3 (1.0-3.2); LYMPHOCYTES % 4.6 % (18.0-39.1); MEAN CORPUSCULAR HEMOGLOBIN 23.2 pg (28-32); MEAN CORPUSCULAR HGB CONC 27.5 g/dL (31-35); MEAN CORPUSCULAR VOLUME 84.2 fL (81-99); MONOCYTES # (AUTO) 0.3 (0.2-0.8); MONOCYTES % 3.4 % (4.4-11.3); NEUTROPHILS # (AUTO) 6.7 (2.1-6.9); NEUTROPHILS % 90.7 % (38.7-80.0); PLATELET COUNT 278 x10e3/uL (140-360); RED CELL DISTRIBUTION WIDTH 21.4 % (11.7-14.4)
[2019-11-15 05:36] LABS: ALANINE AMINOTRANSFERASE 13 IU/L (0-55); ALBUMIN 3.2 g/dL (3.5-5.0); ALBUMIN/GLOBULIN RATIO 1.3 (0.8-2.0); ALKALINE PHOSPHATASE 94 IU/L (40-150); ANION GAP 12.7 mmol/L (8-16); BLOOD UREA NITROGEN 18 mg/dL (7-26); BUN/CREATININE RATIO 24 (6-25); CALCIUM 7.5 mg/dL (8.4-10.2); CARBON DIOXIDE 31 mmol/L (22-29); CHLORIDE 104 mmol/L (98-107); CREATININE, SERUM 0.74 mg/dL (0.57-1.11); EST GLOMERULAR FILTRATION RATE > 60 ML/MIN (60-); GLUCOSE 352 mg/dL (74-118); POTASSIUM 3.7 mmol/L (3.5-5.1); SODIUM 144 mmol/L (136-145)
[2019-11-15 05:45] LABS: CREATINE KINASE MB 3.1 ng/mL (0-5.0)
[2019-11-15] MEDS ORDERED: LOMOTIL TABLET1 EACH (07:21)
[2019-11-15 07:52] LABS: HYPOCHROMASIA MODERATE; RBC MORPHOLOGY COMMENT ABNORMAL
[2019-11-15] MEDS ORDERED: CLONIDINE HCL 0.1 MG TAB PO PRN (08:45)
[2019-11-15] MEDS: VILANTEROL INH SCH (09:00)
[2019-11-15] MEDS: UMECLIDINIUM INH SCH (09:00)
[2019-11-15] MEDS: FLUTICASONE PROPIONATE NASAL SPRAY NS SCH ×2 (09:00→15:54)
[2019-11-15] MEDS: [UNRECOGNIZED DRUG - OTHER] INH SCH (09:00)
[2019-11-15] MEDS: FLUTICASONE INH SCH (09:00)
[2019-11-15] MEDS: POTASSIUM CHLORIDE 20 MEQ TAB CR PO SCH (09:20)
[2019-11-15] MEDS: METHYLPREDNISOLONE SOD SUCC 40 MG/ML VIAL 1ML IV SCH ×2 (09:20→20:16)
[2019-11-15] MEDS: CLOPIDOGREL BISULFATE 75 MG TAB PO SCH (09:21)
[2019-11-15] MEDS ORDERED: DEXTROSE 50% SYRINGE 50 ML IV PRN (09:45)
--- NOTE | 2019-11-15 10:09 | Diagnostic Imaging Report ---
EXAMINATION: CHEST SINGLE (PORTABLE) INDICATION: CHF, COPD COMPARISON: Chest are graft 10/19/2019 FINDINGS: LINES/TUBES:Left chest pacer. EKG leads overlie the chest. LUNGS:The lungs are hyperinflated.. There is perihilar fullness and indistinctness of the pulmonary vasculature. PLEURA:No pleural effusion or pneumothorax. MEDIASTINUM:Cardiomediastinal silhouette is stably enlarged. Atherosclerotic calcifications of the thoracic aorta. BONES/SOFT TISSUES:No acute osseous injury. Severe degenerative changes of both glenohumeral joints. ABDOMEN:No free air under the diaphragm. IMPRESSION: Hyperinflated lungs. No focal pneumonia. Unchanged cardiomegaly and central pulmonary vascular congestion without taylor pulmonary edema. Signed by: Lizzie Guo MD on 11/15/2019 10:06 AM
[2019-11-15] MEDS: INSULIN GLARGINE 100 UNITS/ML VIAL SQ SCH ×2 (10:34→20:16)
[2019-11-15] MEDS ORDERED: FUROSEMIDE INJ 10 MG/ML 4 ML VIAL IV ONE (10:35)
--- NOTE | 2019-11-15 10:54 | History and Physical ---
CHIEF COMPLAINT: Shortness of breath. HISTORY OF PRESENT ILLNESS: This is a 79-year-old white woman, who presents to [facility] with a 2-day history of worsening shortness of breath as well as numbness and cramping in her bilateral upper and lower extremities. The patient states that she takes prednisone daily for her severe COPD, but she quit taking this medication two days prior to admission. In the emergency room, the patient was found to have white blood cell count of 7500 with 66% segmented neutrophils. The patient was found to have potassium of 2.7 on admission. The patient also was found to have B-type natriuretic peptide level of 614 on admission. The patient's glucose readings have been elevated during the stay with diuresis high as 342 mg/dL. The patient's cardiac enzymes namely troponin I have been negative during the stay. On admission, the patient had a CT of the brain that did not reveal any acute intracranial abnormalities. It did reveal prominent brain sulci, but this was age- appropriate. The patient underwent a chest x-ray on admission that revealed stable cardiomegaly with calcifications in the aortic arch. It also revealed increased bibasilar atelectasis as well as trace blunting in the left lateral costophrenic angle, likely secondary to effusion. The patient was admitted for further evaluation and treatment. REVIEW OF SYSTEMS: GENERAL: The patient states her weight increased by 5 pounds in the last couple of weeks. Denies any fever or chills. HEENT: No headaches, no visual changes. CARDIOVASCULAR: The patient complained of worsening of her baseline shortness of breath two days prior to admission. Denies any chest pain or tightness. Denies any palpitations. GI: No nausea, vomiting, or constipation. : No UTI symptoms. NEUROMUSCULAR: Complains of cramping and numbness in her bilateral upper and lower extremities. PAST MEDICAL HISTORY: 1. Severe COPD. 2. Previous heavy tobacco smoker, quit in 2011. 3. Chronic systolic/diastolic congestive heart failure. 4. Oxygen dependent. 5. Coronary artery disease (the patient has a total of four coronary stents are in place). 6. Restless legs syndrome. 7. History of peptic ulcer disease. 8. Paroxysmal atrial fibrillation. PAST SURGICAL HISTORY: 1. Tonsillectomy. 2. Hysterectomy. 3. Bilateral retinal surgery. 4. Bilateral total knee replacement. 5. Cholecystectomy. 6. Left elbow cubital tunnel surgery. 7. Left wrist carpal tunnel surgery. 8. Right elbow cubital tunnel surgery. 9. Right carpal tunnel surgery. 10. Bilateral cataract surgery. 11. Coronary stents placed (four) all placed in 2016. 12. Bladder suspension. 13. Multiple EGDs and colonoscopies. 14. Watchman heart procedures. 15. Pacemaker placement. 16. Atrial ablation. 17. Bone marrow biopsy in February 2019, which did not reveal any evidence of malignancy. FAMILY HISTORY: Father of massive heart attack at age 89. Mother at age 93. Sister of cerebral aneurysm and one of her brothers had type 2 diabetes mellitus. ALLERGIES: LATEX. MEDICATIONS: 1. Trelegy inhaler one puff daily. 2. Plavix 75 mg daily. 3. Diltiazem 90 mg b.i.d. 4. Pantoprazole 40 mg b.i.d. 5. Ropinirole 1 mg b.i.d. 6. Clonidine 0.1 mg once daily as needed for elevated blood pressure. 7. Ondansetron 4 mg once daily as needed for nausea and vomiting. 8. Nasonex nasal spray, one spray at each nostril twice a day. 9. Furosemide 20 mg daily. 10. [place] 10/325 mg 1 daily p.r.n. pain. 11. Albuterol inhaler two puffs q.i.d. p.r.n. shortness of breath and wheezing. 12. Levalbuterol nebulized treatments up to 4 times a day for severe shortness of breath or wheezing. SOCIAL HISTORY: This woman is , lives with her . She is retired. She is a previous heavy tobacco smoker, but she quit in 2011. The patient denies any history of alcohol use. PHYSICAL EXAMINATION: GENERAL: She is awake, alert, fully oriented, in no distress. Oxygen saturation 93% on room air. VITAL SIGNS: Blood pressure 186/76, pulse 96 irregular, temperature 97.4, height 4 feet 9 inches, weight 137 pounds, BMI 30. (Telemetry reveals a paced rhythm). INTEGUMENT: Skin is warm and dry. No pallor, jaundice, diaphoresis. HEENT: Anicteric sclerae with moist mucous membranes. NECK: Supple. No evidence of jugular venous distention. CARDIOVASCULAR: Distant sounds. Regular rate with irregular rhythm. The patient has a diastolic murmur and S3 gallop. LUNGS: The patient has faint rhonchi bilaterally with diminished breath sounds at the bases. ABDOMEN: Benign. EXTREMITIES: The patient has ecchymosis on her bilateral forearms. No edema in the left lower leg, but the patient has trace edema in the right lower leg. The patient has a chronic wound on the medial aspect of right lower leg, which appears to be healing. NEUROLOGIC: Intact. She has a slow antalgic gait. She ambulates with a rolling walker. No focal deficits appreciated. DIAGNOSES: 1. Acute on chronic systolic/diastolic congestive heart failure. 2. Chronic obstructive pulmonary disease exacerbation. 3. Hypokalemia. 4. Diabetic peripheral neuropathy. 5. Type 2 diabetes mellitus. 6. Previous heavy tobacco smoker (quit in 2011). 7. Peripheral artery disease. 8. Chronic respiratory failure (supplemental oxygen dependent). 9. Restless legs syndrome. PLAN: 1. Replete potassium. 2. Intravenous furosemide. 3. Order echocardiogram. 4. We will continue nebulized bronchodilators and supplemental oxygen as needed. 5. Continue intravenous methylprednisone. 6. Glucose control. 7. Repeat chest x-ray. 8. Start intravenous azithromycin since patient's COPD could have been exacerbated by acute bronchitis. TIME SPENT: I spent an hour in the care of the patient. MD ADITYA Hector/WOOD /[id number] MTDD
[2019-11-15] MEDS: DILTIAZEM HCL ER 90MG CAPSULE PO SCH ×2 (11:50→16:30)
[2019-11-15] MEDS: AZITHROMYCIN 500MG/NS 250 ML 250 ML IV SCH (12:10)
[2019-11-15] MEDS: INSULIN LISPRO 100 UNIT/1 ML 3ML VIAL SQ SCH ×3 (12:10→20:16)
[2019-11-15] MEDS: LEVALBUTEROL HCL SOLN NEBU 0.63 MG/3 ML NEB INH SCH ×2 (13:14→19:45)
--- NOTE | 2019-11-15 15:46 | Progress Note ---
DATE: SUBJECTIVE: The patient had some difficulty breathing this morning, but now feels better. She still has some weakness. PHYSICAL EXAMINATION: VITAL SIGNS: The patient is afebrile. The vital signs are stable. HEENT: Shows no facial swelling or erythema. CARDIAC: Reveals a regular rate and rhythm with normal S1 and S2. LUNGS: Auscultation of lungs reveals clear breath sounds bilaterally. There is no wheezing. ABDOMEN: Soft and nontender. There is no rebound or guarding. EXTREMITIES: Shows no leg edema or calf tenderness. There is no cyanosis or clubbing. SKIN: Shows no rashes. NEUROLOGICAL: Shows no focal abnormalities. LABORATORY DATA: Hemoglobin is 8.8. The platelet count is 278. The BUN to creatinine ratio is normal. The blood sugars are 290 and 266. The BNP is elevated at 1016. IMPRESSION: 1. Rlubi-xp-uieudrl systolic congestive heart failure. 2. Chronic obstructive pulmonary disease with chronic exacerbation. 3. Diabetes. 4. Anemia, unspecified. 5. Hypertension. PLAN: 1. Continue diuretics. 2. Continue Solu-Medrol and wean as tolerated. 3. Continue oxygen and bronchodilators. 4. Physical therapy. Keyon Greenberg MD LM/JANNL /[id number]
[2019-11-15] MEDS: FUROSEMIDE INJ 10 MG/ML 4 ML VIAL IV SCH (16:30)
--- NOTE | 2019-11-15 19:17 | NUR ---
Report given to oncoming nurse of patient's status. Resting in bed. AAOX3 to time, person, place. Respirations even and unlabored. O2 3L NC. Side rails upx2, call light within reach.
--- NOTE | 2019-11-15 19:54 | NUR ---
pt received. pt assessed. no ss of distress noted. no co pain at time. tele in place. left leg drsg cdi. will cont to follow poc. call hand within reach.
[2019-11-16] VITALS (8 sets, daily range): BP systolic 134–148; BP diastolic 58–66
[2019-11-16] MEDS: LEVALBUTEROL HCL SOLN NEBU 0.63 MG/3 ML NEB INH SCH ×4 (00:30→19:45)
--- NOTE | 2019-11-16 04:54 | NUR ---
pt resting. no ss of distress noted. call hand within reach.
[2019-11-16 05:20] LABS: BASOPHILS % 0.1 % (0.0-1.0); HEMATOCRIT 32.6 % (34.2-44.1); LYMPHOCYTES # (AUTO) 0.8 (1.0-3.2); LYMPHOCYTES % 4.1 % (18.0-39.1); MEAN CORPUSCULAR HEMOGLOBIN 23.6 pg (28-32); MEAN CORPUSCULAR HGB CONC 27.6 g/dL (31-35); MEAN CORPUSCULAR VOLUME 85.6 fL (81-99); MONOCYTES # (AUTO) 0.2 (0.2-0.8); MONOCYTES % 1.2 % (4.4-11.3); NEUTROPHILS # (AUTO) 17.6 (2.1-6.9); NEUTROPHILS % 93.5 % (38.7-80.0); PLATELET COUNT 326 x10e3/uL (140-360); RED BLOOD COUNT 3.81 x10e6/uL (3.6-5.1)
[2019-11-16 05:48] LABS: ALANINE AMINOTRANSFERASE 15 IU/L (0-55); ALBUMIN 3.7 g/dL (3.5-5.0); ALBUMIN/GLOBULIN RATIO 1.4 (0.8-2.0); ALKALINE PHOSPHATASE 91 IU/L (40-150); ANION GAP 10.4 mmol/L (8-16); BLOOD UREA NITROGEN 25 mg/dL (7-26); BUN/CREATININE RATIO 32 (6-25); CALCIUM 8.2 mg/dL (8.4-10.2); CARBON DIOXIDE 33 mmol/L (22-29); CHLORIDE 101 mmol/L (98-107); CREATININE, SERUM 0.79 mg/dL (0.57-1.11); EST GLOMERULAR FILTRATION RATE > 60 ML/MIN (60-); GLUCOSE 166 mg/dL (74-118); POTASSIUM 4.4 mmol/L (3.5-5.1); SODIUM 140 mmol/L (136-145)
[2019-11-16 08:01] LABS: HYPOCHROMASIA MODERATE; RBC MORPHOLOGY COMMENT ABNORMAL
[2019-11-16] MEDS: FUROSEMIDE INJ 10 MG/ML 4 ML VIAL IV SCH ×2 (08:42→17:17)
[2019-11-16] MEDS: METHYLPREDNISOLONE SOD SUCC 40 MG/ML VIAL 1ML IV SCH ×2 (08:42→22:16)
[2019-11-16] MEDS: [UNRECOGNIZED DRUG - OTHER] INH SCH (08:44)
[2019-11-16] MEDS: UMECLIDINIUM INH SCH (08:44)
[2019-11-16] MEDS: VILANTEROL INH SCH (08:44)
[2019-11-16] MEDS: FLUTICASONE PROPIONATE NASAL SPRAY NS SCH ×2 (08:44→17:17)
[2019-11-16] MEDS: FLUTICASONE INH SCH (08:44)
[2019-11-16] MEDS: INSULIN LISPRO 100 UNIT/1 ML 3ML VIAL SQ SCH ×4 (08:44→22:15)
[2019-11-16] MEDS: CLOPIDOGREL BISULFATE 75 MG TAB PO SCH (08:47)
[2019-11-16] MEDS: DILTIAZEM HCL ER 90MG CAPSULE PO SCH ×2 (08:47→17:17)
[2019-11-16] MEDS: POTASSIUM CHLORIDE 20 MEQ TAB CR PO SCH (08:47)
[2019-11-16] MEDS: INSULIN GLARGINE 100 UNITS/ML VIAL SQ SCH ×2 (09:00→22:16)
--- NOTE | 2019-11-16 09:55 | Progress Note ---
DATE: 11/16/2019 CHIEF COMPLAINT/HISTORY OF PRESENT ILLNESS: This is a 79-year-old white woman, whose primary treating diagnosis is acute on chronic diastolic heart failure and COPD exacerbation. The patient also has acute bronchitis. She is breathing somewhat better. The patient had blood work done today, was found to have a B-type natriuretic peptide level of 830. Chest x-ray performed yesterday revealed stable cardiomegaly with central pulmonary vascular congestion. The patient's today's potassium is 4.4. BUN and creatinine are 25 and 0.79 respectively. REVIEW OF SYSTEMS: As per HPI. PHYSICAL EXAMINATION: GENERAL: She is awake, alert, fully oriented, slightly dyspneic. She is currently wearing oxygen. She is very pleasant and cooperative on exam. She does not appear in any distress. VITAL SIGNS: Blood pressure 140/66, pulse 70 (paced rhythm), respiratory rate is 22, oxygen saturation 98% on 2 liters oxygen, and temperature 97.4. BMI is 30. INTEGUMENT: Skin is warm and dry. No pallor, jaundice, or diaphoresis. HEENT: Anterior sclerae. Moist mucous membranes. NECK: Supple. No evidence of jugular venous distention. CARDIOVASCULAR: Distant heart sounds. Regular rate and rhythm with a systolic ejection murmur and S3 gallop. LUNGS: She has crackles bilaterally. ABDOMEN: Obese and benign. SPINE/TORSO: She has a significantly kyphotic dorsal spine. EXTREMITIES: She has trace to 1+ edema in the bilateral lower legs. NEUROLOGIC: Intact. DIAGNOSES: 1. Acute on chronic diastolic congestive heart failure. 2. Chronic obstructive pulmonary disease exacerbation, resolving. 3. Acute bronchitis. 4. Previous heavy tobacco smoker, quit in 2011. 5. Type 2 diabetes mellitus. 6. Hyperglycemia secondary to intravenous methylprednisone. 7. Hypokalemia, resolved. PLAN: 1. We will add angiotensin receptor melani since the patient has diastolic heart failure and hypertension. 2. Continue intravenous furosemide. 3. Avoid beta blockers since the patient has severe COPD. 4. We will continue oral Cardizem for heart rate control. 5. We will wean the patient off intravenous methylprednisone because of the patient's hyperglycemia. 6. Follow electrolytes. 7. Continue intravenous azithromycin for her acute bronchitis. 8. We will likely discharge the patient home tomorrow. I spent 30 minutes in the care of this patient. MD ADITYA Hector/WOOD /[id number] MTDTali
[2019-11-16] MEDS: AZITHROMYCIN 500MG/NS 250 ML 250 ML IV SCH (13:15)
[2019-11-16] MEDS: OLMESARTAN 20 MG TAB PO SCH (14:00)
--- NOTE | 2019-11-16 14:20 | NUR ---
pt walked with PT tolerated well.
--- NOTE | 2019-11-16 16:51 | Diagnostic Imaging Report ---
Exam: PA and lateral chest radiograph Comparison: 2019 Clinical history: Leukocytosis Findings: There is moderate cardiomegaly. Blunting of the left costophrenic sulcus is noted which may represent small effusion. There is no evidence of pulmonary consolidation or pneumothorax. The dual lead left transvenous pacemaker is again noted. The regional osseous structures are unremarkable. Signed by: Dr. Ji Rocha MD on 11/16/2019 4:49 PM
--- NOTE | 2019-11-16 19:03 | Progress Note ---
DATE: SUBJECTIVE: The patient still has some dyspnea with exertion. She has less leg edema. Her white blood cell count increased to 18 today. PHYSICAL EXAMINATION: VITAL SIGNS: The patient is afebrile. The blood pressure is 148/65 and saturation is 97% on 2 L. The pulse is 71. HEENT: Shows no facial swelling or erythema. CARDIAC: Reveals regular rate and rhythm with normal S1 and S2. LUNGS: Auscultation of lungs reveals decreased breath sounds at the bases. There is no wheezing. ABDOMEN: Soft and nontender. There is no rebound or guarding. EXTREMITIES: Shows trace leg edema. LABORATORY DATA: White blood cell count is 18.8 and the hemoglobin is 9. The platelet count is 326. The BUN to creatinine ratio is normal. The other electrolytes within normal limits. The BNP is 830 and the glucose is 240. IMPRESSION: 1. Jnpyt-oo-glyybno systolic congestive heart failure. 2. Chronic obstructive pulmonary disease with acute exacerbation. 3. Diabetes. 4. Anemia, unspecified. 5. Hypertension. PLAN: 1. Repeat chest x-ray. 2. Continue diuretics. 3. Wean Solu-Medrol. 4. Oxygen and bronchodilators. 5. Out of bed as tolerated. Keyon Greenberg MD [facility]/MODL /[id number]
--- NOTE | 2019-11-16 19:52 | NUR ---
report given to oncoming nurse, walking rounds complete
[2019-11-17] VITALS (8 sets, daily range): BP systolic 111–173; BP diastolic 49–73
[2019-11-17] MEDS: LEVALBUTEROL HCL SOLN NEBU 0.63 MG/3 ML NEB INH SCH ×3 (01:30→19:55)
[2019-11-17 05:14] LABS: BASOPHILS % 0.2 % (0.0-1.0); HEMOGLOBIN 9.5 g/dL (12.0-16.0); LYMPHOCYTES # (AUTO) 0.5 (1.0-3.2); LYMPHOCYTES % 2.6 % (18.0-39.1); MEAN CORPUSCULAR HEMOGLOBIN 23.8 pg (28-32); MEAN CORPUSCULAR HGB CONC 27.9 g/dL (31-35); MEAN CORPUSCULAR VOLUME 85.2 fL (81-99); MONOCYTES # (AUTO) 0.3 (0.2-0.8); MONOCYTES % 1.8 % (4.4-11.3); NEUTROPHILS # (AUTO) 17.7 (2.1-6.9); PLATELET COUNT 340 x10e3/uL (140-360); RED BLOOD COUNT 3.99 x10e6/uL (3.6-5.1); RED CELL DISTRIBUTION WIDTH 21.7 % (11.7-14.4)
[2019-11-17 05:46] LABS: ALANINE AMINOTRANSFERASE 16 IU/L (0-55); ALBUMIN 3.6 g/dL (3.5-5.0); ALBUMIN/GLOBULIN RATIO 1.3 (0.8-2.0); ALKALINE PHOSPHATASE 87 IU/L (40-150); ANION GAP 13.3 mmol/L (8-16); BLOOD UREA NITROGEN 25 mg/dL (7-26); BUN/CREATININE RATIO 30 (6-25); CALCIUM 8.4 mg/dL (8.4-10.2); CARBON DIOXIDE 30 mmol/L (22-29); CHLORIDE 104 mmol/L (98-107); CREATININE, SERUM 0.83 mg/dL (0.57-1.11); EST GLOMERULAR FILTRATION RATE > 60 ML/MIN (60-); GLUCOSE 228 mg/dL (74-118); POTASSIUM 4.3 mmol/L (3.5-5.1); SODIUM 143 mmol/L (136-145)
[2019-11-17] MEDS: [UNRECOGNIZED DRUG - OTHER] INH SCH (09:00)
[2019-11-17] MEDS: UMECLIDINIUM INH SCH (09:00)
[2019-11-17] MEDS: FLUTICASONE INH SCH (09:00)
[2019-11-17] MEDS: INSULIN GLARGINE 100 UNITS/ML VIAL SQ SCH ×2 (09:00→21:16)
[2019-11-17] MEDS: VILANTEROL INH SCH (09:00)
[2019-11-17] MEDS: DILTIAZEM HCL ER 90MG CAPSULE PO SCH ×2 (09:22→16:48)
[2019-11-17] MEDS: OLMESARTAN 20 MG TAB PO SCH (09:22)
[2019-11-17] MEDS: CLOPIDOGREL BISULFATE 75 MG TAB PO SCH (09:23)
[2019-11-17] MEDS: FLUTICASONE PROPIONATE NASAL SPRAY NS SCH ×2 (09:23→16:48)
[2019-11-17] MEDS: METHYLPREDNISOLONE SOD SUCC 40 MG/ML VIAL 1ML IV SCH ×2 (09:23→21:22)
[2019-11-17] MEDS: POTASSIUM CHLORIDE 20 MEQ TAB CR PO SCH (09:23)
[2019-11-17] MEDS: FUROSEMIDE INJ 10 MG/ML 4 ML VIAL IV SCH ×2 (09:29→16:48)
[2019-11-17] MEDS: METOPROLOL SUCCINATE 50 MG TAB XL PO SCH (10:00)
--- NOTE | 2019-11-17 10:11 | Progress Note ---
DATE: 11/17/2019 CHIEF COMPLAINT/HISTORY OF PRESENT ILLNESS: This 79-year-old white woman, whose primary treating diagnosis is COPD exacerbation, acute bronchitis, and kqlnb-wk-tebmnee diastolic heart failure. The patient states her shortness of breath is improving. She also states her leg swelling has improved dramatically. The patient had blood work done today, which revealed white blood cell count of 18,800 with 94% segmenters. The patient's hemoglobin is 9.5 g/dL. The patient's potassium is 4.3. The patient's today's BUN and creatinine is 25 and 0.83, respectively. The patient's serum glucose this morning is 228 mg/dL. Chest x-ray performed on November 16, 2019 revealed moderate cardiomegaly as well as blunting of the left costophrenic sulcus, which may represent small pleural effusion. REVIEW OF SYSTEMS: As per HPI. PHYSICAL EXAMINATION: GENERAL: She is awake, alert and fully oriented, slightly dyspneic, but in no acute respiratory distress. Her is at bedside. VITAL SIGNS: Blood pressure 170/70, pulse 88, respiratory rate is 24, ox saturation is 97% on 3 L oxygen, and temperature 96.4. BMI is 30. INTEGUMENT: Skin is warm and dry. No pallor, jaundice, or diaphoresis. HEENT: Anicteric sclerae. Moist mucous membranes. The patient has a hoarse, smoker's voice. NECK: Supple. No evidence of jugular venous distention. CARDIOVASCULAR: Distant heart sounds. Regular rate and rhythm with an S3 gallop. LUNGS: The patient has no rales, no rhonchi. No wheezing. The patient has moderate air entry bilaterally. SPINE/TORSO: The patient has a kyphotic dorsal spine. ABDOMEN: Obese, benign. EXTREMITIES: The patient has lower leg edema, has resolved completely. The patient's chronic erythema in the right lower leg is also improving. NEUROLOGIC: Intact. No gross deficits appreciated. DIAGNOSES: 1. Sxehr-ed-oammpgf diastolic congestive heart failure. 2. Acute bronchitis. 3. Chronic obstructive pulmonary disease exacerbation. 4. Type 2 diabetes mellitus. 5. Hyperglycemia, exacerbated by intravenous methylprednisone. PLAN: 1. Wean off intravenous methylprednisone. 2. We will treat congestive heart failure with intravenous furosemide, angiotensin receptor melani, and beta-melani. 3. Continue intravenous antibiotics, namely azithromycin and ceftriaxone for the patient's acute bronchitis. 4. Continue nebulized bronchodilators and supplemental oxygen for the patient's chronic respiratory failure. 5. We will increase Lantus insulin to 40 units subcutaneous twice a day for better glucose control. I spent 30 minutes in the care of this patient. Discharge planning for tomorrow, , November 18, 2019. MD ADITYA Hector/WOOD /[id number] JUAN
[2019-11-17] MEDS: POTASSIUM CHLORIDE 20MEQ/15ML UDC PO SCH (10:15)
[2019-11-17] MEDS: INSULIN LISPRO 100 UNIT/1 ML 3ML VIAL SQ SCH ×4 (10:22→21:16)
[2019-11-17] MEDS: CEFTRIAXONE SOD 1 GM/NS 50 ML 50 ML IV SCH ×3 (10:30→23:00)
[2019-11-17 10:53] LABS: ANISOCYTOSIS MODERATE; HYPOCHROMASIA SLIGHT; OVALOCYTES FEW; PLATELET ESTIMATE ADEQUATE; PLATELET MORPHOLOGY COMMENT NORMAL; RBC MORPHOLOGY COMMENT NORMAL
[2019-11-17 10:54] LABS: ELLIPTOCYTE, RBC SLIGHT
[2019-11-17] MEDS ORDERED: AZITHROMYCIN 250 MG TAB PO SCH (12:00)
--- NOTE | 2019-11-17 19:31 | NUR ---
report given to oncoming nurse, walking rounds complete.
[2019-11-18] VITALS: BP 151/67
[2019-11-18] MEDS: LEVALBUTEROL HCL SOLN NEBU 0.63 MG/3 ML NEB INH SCH ×2 (02:35→06:00)
[2019-11-18 04:00] VITALS: BP 146/64
[2019-11-18 05:11] LABS: BASOPHILS % 0.1 % (0.0-1.0); HEMOGLOBIN 9.3 g/dL (12.0-16.0); LYMPHOCYTES # (AUTO) 0.6 (1.0-3.2); LYMPHOCYTES % 3.3 % (18.0-39.1); MEAN CORPUSCULAR HEMOGLOBIN 23.5 pg (28-32); MEAN CORPUSCULAR HGB CONC 27.4 g/dL (31-35); MEAN CORPUSCULAR VOLUME 86.1 fL (81-99); MONOCYTES # (AUTO) 0.5 (0.2-0.8); MONOCYTES % 2.8 % (4.4-11.3); NEUTROPHILS # (AUTO) 17.2 (2.1-6.9); NEUTROPHILS % 92.6 % (38.7-80.0); PLATELET COUNT 314 x10e3/uL (140-360); RED BLOOD COUNT 3.95 x10e6/uL (3.6-5.1); RED CELL DISTRIBUTION WIDTH 21.6 % (11.7-14.4)
[2019-11-18 05:36] LABS: ANION GAP 12.2 mmol/L (8-16); BLOOD UREA NITROGEN 30 mg/dL (7-26); BUN/CREATININE RATIO 39 (6-25); CALCIUM 8.1 mg/dL (8.4-10.2); CARBON DIOXIDE 30 mmol/L (22-29); CHLORIDE 103 mmol/L (98-107); CREATININE, SERUM 0.76 mg/dL (0.57-1.11); EST GLOMERULAR FILTRATION RATE > 60 ML/MIN (60-); GLUCOSE 142 mg/dL (74-118); POTASSIUM 4.2 mmol/L (3.5-5.1); SODIUM 141 mmol/L (136-145)
[2019-11-18] MEDS: INSULIN LISPRO 100 UNIT/1 ML 3ML VIAL SQ SCH (07:30)
[2019-11-18 08:34] VITALS: BP 133/62
[2019-11-18 08:43] LABS: ANISOCYTOSIS MODERATE; MICROCYTOSIS SLIGHT; PLATELET ESTIMATE ADEQUATE; PLATELET MORPHOLOGY COMMENT NORMAL; RBC MORPHOLOGY COMMENT ABNORMAL; TEAR DROP CELLS FEW
[2019-11-18 08:45] LABS: HYPOCHROMASIA SLIGHT
[2019-11-18 08:49] LABS: ELLIPTOCYTE, RBC SLIGHT
[2019-11-18] MEDS: INSULIN GLARGINE 100 UNITS/ML VIAL SQ SCH (09:00)
[2019-11-18] MEDS: CLOPIDOGREL BISULFATE 75 MG TAB PO SCH (09:00)
[2019-11-18] MEDS: FUROSEMIDE INJ 10 MG/ML 4 ML VIAL IV SCH (09:47)
[2019-11-18] MEDS: FLUTICASONE PROPIONATE NASAL SPRAY NS SCH (09:47)
[2019-11-18] MEDS: POTASSIUM CHLORIDE 20MEQ/15ML UDC PO SCH (09:49)
[2019-11-18] MEDS: OLMESARTAN 20 MG TAB PO SCH (09:49)
[2019-11-18] MEDS: DILTIAZEM HCL ER 90MG CAPSULE PO SCH (09:49)
[2019-11-18] MEDS: METOPROLOL SUCCINATE 50 MG TAB XL PO SCH (09:50)
[2019-11-18] MEDS: [UNRECOGNIZED DRUG - OTHER] INH SCH (09:50)
[2019-11-18] MEDS: VILANTEROL INH SCH (09:50)
[2019-11-18] MEDS: FLUTICASONE INH SCH (09:50)
[2019-11-18] MEDS: UMECLIDINIUM INH SCH (09:50)
[2019-11-18] MEDS ORDERED: CHOLESTYRAMINE P4 GM (10:21)
--- NOTE | 2019-11-18 10:27 | Progress Note ---
DATE: SUBJECTIVE: The patient feels better, but still has some congestion. She is less cough. She does not complain of chest pain. OBJECTIVE: VITAL SIGNS: The blood pressure is 146/64 and the saturation is 94% on 2 L. Pulse is 70. HEENT: Shows no facial swelling or erythema. CARDIAC: Reveals regular rate and rhythm with normal S1, S2. LUNGS: Auscultation of lungs reveals rhonchorous breath sounds bilaterally. There is no wheezing. ABDOMEN: Soft, nontender. There is no rebound or guarding. EXTREMITIES: Show no leg edema or calf tenderness. There is no cyanosis or clubbing. SKIN: Shows no rashes. NEUROLOGICAL: Shows no focal abnormalities. IMPRESSION: 1. Uvcua-tg-iomhwsl systolic congestive heart failure. 2. Chronic obstructive pulmonary disease with acute exacerbation. 3. Diabetes. 4. Anemia. 5. Hypertension. PLAN: 1. Continue current cardiac regimen. 2. Wean steroids. 3. Oxygen and bronchodilators. 4. Noninvasive ventilator at home. The patient already has this. 5. Physical therapy and home health. Keyon Greenberg MD [facility]/MODL /[id number]
[2019-11-18] MEDS ORDERED: AUGMENTIN 500-1 EACH PO (10:37)
[2019-11-18] MEDS ORDERED: LEVALBUTER0.63 MG/3 NEB (10:38)
[2019-11-18] MEDS ORDERED: ATROVENT HFA12.9 GM IH (10:43)
[2019-11-18] MEDS ORDERED: KLOR-CON 1010 MEQ PO (10:47)
[2019-11-18] MEDS ORDERED: DILTIAZEM HCL90 MG PO (10:50)
[2019-11-18] MEDS ORDERED: FUROSEMIDE40 MG PO (10:54)
[2019-11-18] MEDS ORDERED: METOPROLOL SUCC50 MG PO (10:55)
[2019-11-18] MEDS ORDERED: BENICAR20 MG PO (10:56)
[2019-11-18] MEDS ORDERED: AZITHROMYCIN 250 MG TAB PO SCH (11:00)
[2019-11-18] MEDS ORDERED: TRESIBA100 UNIT/1 (11:01)
[2019-11-18] MEDS ORDERED: ASPIR-LOW81 MG PO (11:04)
[2019-11-18] MEDS ORDERED: PREDNISONE PO (11:06)
--- NOTE | 2019-11-18 11:10 | NUR ---
IMM letter delivered and explained to pt. She verbalized understanding. Signed copy placed in chart. Copy to pt.
--- NOTE | 2019-11-18 11:18 | Discharge Summary ---
ADMITTING DIAGNOSES: 1. Chronic obstructive pulmonary disease exacerbation. 2. Phlji-ix-ulzinmr diastolic heart failure. 3. Acute bronchitis. 4. Hypokalemia. 5. Type 2 diabetes mellitus with diabetic peripheral neuropathy. 6. Heavy tobacco smoker (quit in 2011). 7. Peripheral artery disease. 8. Chronic respiratory failure (supplemental oxygen dependent). 9. Restless legs syndrome. DISCHARGE DIAGNOSES: 1. Jzacc-po-epemtzc diastolic heart failure, resolving. 2. Chronic obstructive pulmonary disease exacerbation, resolving. 3. Bilateral gram-negative bakari pneumonia, resolving. 4. Hypokalemia, resolved. 5. Type 2 diabetes mellitus with diabetic peripheral neuropathy. 6. Hyperglycemia secondary to methylprednisone. 7. Previous heavy tobacco smoker (quit in 2011). 8. Peripheral artery disease. 9. Chronic respiratory failure (supplemental oxygen dependent). 10. Restless legs syndrome. HOSPITAL COURSE: This is a 79-year-old white woman, who was initially admitted to [facility] with diagnosis of ficml-xq-jjcajdp systolic/diastolic congestive heart failure as well as COPD exacerbation. Initially, it was felt that the patient's COPD exacerbation and acute exacerbation of heart failure was secondary to acute bronchitis. Chest x-rays performed during this hospitalization revealed bibasilar atelectasis that was perhaps felt to be secondary to pneumonia. The patient had profound leukocytosis during this hospitalization. On the day of discharge, white blood cell count was 18,600 with 92% segmenters, however, during this hospitalization, the patient did receive intravenous methylprednisone for her COPD exacerbation. The patient was seen by pulmonology during this hospitalization namely Dr. Keyon Greenberg. Also, on October 01, 2019, the patient underwent echocardiogram here at this hospital, which revealed a preserved left ventricular ejection fraction of 55% to 59%. However, this echocardiogram revealed moderate concentric left ventricular hypertrophy as well as impaired relaxation consistent with diastolic heart failure. During this hospitalization, the patient's acute congestive heart failure symptoms improved with intravenous furosemide. Her pneumonia symptoms improved with intravenous ceftriaxone and azithromycin. The patient also received scheduled nebulized bronchodilators during this hospitalization in the form of Levalbuterol. The patient also participated in physical therapy during this hospital stay. The patient's condition on discharge is stable. DISCHARGE MEDICATIONS: 1. Augmentin 500 mg b.i.d. for 7 days. 2. Levalbuterol nebulized treatments 0.63 mg strength four times a day schedule. 3. Ipratropium nebulized treatments 0.5 mg strength four times a day scheduled. 4. Potassium chloride 10 mEq two pills daily. 5. Diltiazem 90 mg b.i.d. 6. Aspirin 81 mg daily. 7. Furosemide 40 mg b.i.d. (06:00 a.m. and noon). 8. Metoprolol succinate 50 mg daily. 9. Olmesartan 20 mg daily. 10. Prednisone 40 mg daily for 5 days and then 20 mg daily thereafter. 11. Tresiba insulin 60 units subcutaneous daily. 12. Trelegy Ellipta 100/62.5/25 one puff daily. 13. Hydrocodone/acetaminophen 10/325 one pill up to 4 times a day as needed for severe pain. 14. Mometasone two sprays in each nostril twice a day. 15. Cholestyramine 4 g p.o. b.i.d. 16. A 3 L of oxygen per minute continuous. Following medications will be discontinued: 1. Clonidine. 2. Clopidogrel. 3. Lomotil. 4. Humalog insulin. 5. Ondansetron pills. 6. Xopenex inhaler. FOLLOWUP INSTRUCTIONS: The patient instructed to follow up with her primary care physician, namely myself, Dr. Roland Brooke within 1 week. The patient will follow up Dr. Keyon Greenberg, certified breastfeeding educator in 2 weeks. MD NELLI HectorO/WOOD /[id number] cc: Kit Saucedo MD MTDD
--- NOTE | 2019-11-18 12:22 | NUR ---
pt discharged home with her prescriptions , her medications were explained to her, pt verbalized understanding, pt has on her own oxygen, pt iv removed at this time,swelling no redness to site.
[2019-11-18 12:33] VITALS: BP 149/60
== END 2019-11-18 12:15 | disposition home or self-care (01) | DRG 177 ==
LOC: ER 09:58 → ERHOLD 13:43 → MED/SURG2 18:49 → OBSVTOIN 22:12
PROVIDERS: ADMIT Internal Medicine; ATTEND Internal Medicine
DX: J15.6 Pneumonia due to other Gram-negative bacteria (principal); I50.43 Acute on chronic combined systolic (congestive) and diastolic (congestive) heart failure; J44.1 Chronic obstructive pulmonary disease with (acute) exacerbation; J96.10 Chronic respiratory failure, unspecified whether with hypoxia or hypercapnia; J44.0 Chronic obstructive pulmonary disease with (acute) lower respiratory infection; I11.0 Hypertensive heart disease with heart failure; G25.81 Restless legs syndrome; E87.6 Hypokalemia; J20.9 Acute bronchitis, unspecified; E11.51 Type 2 diabetes mellitus with diabetic peripheral angiopathy without gangrene; Z87.891 Personal history of nicotine dependence; Z99.81 Dependence on supplemental oxygen; T38.0X5A Adverse effect of glucocorticoids and synthetic analogues, initial encounter; E11.65 Type 2 diabetes mellitus with hyperglycemia; I25.10 Atherosclerotic heart disease of native coronary artery without angina pectoris; Z95.5 Presence of coronary angioplasty implant and graft
CPT/HCPCS: 36415; 36600; 70450; 71045; 71046; 80048; 80053; 82550; 82553; 82805; 82948; 83518; 83735; 83880; 84443; 84484; 85025; 85610; 85730; 87040; 87070; 87086; 87400; 93005; 94640; 94664; 96367; 96372; 96376; 97139; 99284; J0456; J0696; J1815; J1940; J2920; J2930; J3480; J7040

== ENCOUNTER → 2022-04-24 | Outpatient (CLI) | payer MEDICARE ==
[~2022-04-24] MED LIST changes: +ASPIR-LOW81 MG PO; +ATROVENT HFA12.9 GM IH; +AUGMENTIN 500-1 EACH PO; +BENICAR20 MG PO; +CHOLESTYRAMINE P4 GM; +CLONIDINE HCL0.1 MG PO; +CLOPIDOGREL75 MG PO; +DILTIAZEM HCL30 MG PO; +DILTIAZEM HCL90 MG PO; +FUROSEMIDE20 MG; +FUROSEMIDE40 MG PO; +HUMALOG100 UNIT/3; +IBUPROFEN200 MG PO; +IOPAMIDOL 370 MG/ML 100 ML INFUS..BTL INJ ONE; +KLOR-CON 1010 MEQ PO; +LASIX20 MG PO; +LEVALBUTER0.63 MG/3 NEB; +LOMOTIL TABLET1 EACH; +METOPROLOL SUCC50 MG PO; +NASONEX17 GM; +ONDANSETRON ODT4 MG PO; +POTASSIUM CHLOR8 MEQ; +PREDNISONE PO; +PREDNISONE5 MG PO; +TRELEGY ELLIPT1 EACH INH; +TRESIBA100 UNIT/1; +VITAMIN C PO; +ZOFRAN4 MG PO
[2022-04-24 08:57] LABS: CREATININE, SERUM 0.88 mg/dL (0.57-1.11)
== END ==
LOC: CT 07:41
PROVIDERS: ATTEND Internal Medicine Gastroenterology
DX: R10.30 Lower abdominal pain, unspecified (principal)
CPT/HCPCS: 36415; 74177; 82565; 84520; Q9967

== ENCOUNTER 2022-05-01 10:55 | Observation (INO) | payer MEDICARE ==
[~2022-05-01] VITALS: Ht 144.8 cm; Wt 62.1 kg
[~2022-05-01 10:55] MED LIST changes: -ALBUTEROL SULF 0.083% NEB SOLN 3 ML NEB ONE; -ALBUTEROL/IPRATROPIUM 3 ML NEB ONE; -FERROUS SULFAT325 MG PO; -OMEPRAZOLE40 MG PO
[2022-05-01 11:42] LABS: BASOPHILS % 0.1 % (0.0-1.0); HEMATOCRIT 42.5 % (34.2-44.1); HEMOGLOBIN 12.5 g/dL (12.0-16.0); LYMPHOCYTES # (AUTO) 0.6 (1.0-3.2); LYMPHOCYTES % 6.6 % (18.0-39.1); MEAN CORPUSCULAR HEMOGLOBIN 28.2 pg (28-32); MEAN CORPUSCULAR HGB CONC 29.4 g/dL (31-35); MEAN CORPUSCULAR VOLUME 95.9 fL (81-99); MONOCYTES # (AUTO) 0.8 (0.2-0.8); MONOCYTES % 7.9 % (4.4-11.3); NEUTROPHILS % 84.8 % (38.7-80.0); PLATELET COUNT 218 x10e3/uL (140-360); RED BLOOD COUNT 4.43 x10e6/uL (3.6-5.1); RED CELL DISTRIBUTION WIDTH 14.1 % (11.7-14.4)
[2022-05-01 12:09] LABS: ALBUMIN 3.6 g/dL (3.5-5.0); ALBUMIN/GLOBULIN RATIO 1.2 (0.8-2.0); ANION GAP 9.6 mmol/L (8-16); CREATININE, SERUM 1.09 mg/dL (0.57-1.11); POTASSIUM 3.6 mmol/L (3.5-5.1)
[2022-05-01 12:36] LABS: CLARITY,URINE CLEAR (CLEAR); COLOR,URINE YELLOW (YELLOW); KETONES,URINE NEGATIVE (NEGATIVE); LEUKOCYTE ESTERASE ,URINE NEGATIVE (NEGATIVE); NITRITE,URINE NEGATIVE (NEGATIVE); PROTEIN,URINE DIPSTICK 2+ (NEGATIVE); URINE UROBILINOGEN 0.2 mg/dL (0.2 - 1)
[2022-05-01 13:03] LABS: BACTERIA,URINE MODERATE /HPF; EPITHELIAL CELLS,URINE MODERATE /LPF; RBC,URINE 0-5 /HPF (0-5); RENAL EPITHELIAL CELLS,URINE FEW
[2022-05-01] MEDS: SODIUM CHLORIDE 0.9% 1000ML 1,000 ML IV SCH ×2 (13:03→23:42)
[2022-05-01] MEDS ORDERED: ALBUTEROL SULF 0.083% NEB SOLN 3 ML NEB NEB STA (15:19)
[2022-05-01 18:37] VITALS: BP 134/46
[2022-05-01 18:40] VITALS: BP 134/46
[2022-05-01 20:00] VITALS: BP 135/55
[2022-05-01 21:00] VITALS: BP 135/55
[2022-05-01] MEDS ORDERED: HYDROCODONE/APAP 10MG-325MG TAB PO PRN (22:45)
[2022-05-01] MEDS ORDERED: BENZONATATE 100 MG CAP PO PRN (22:45)
[2022-05-02] MEDS ORDERED: IPRATROPIUM BROMIDE INHALER 12.9 GM INH INH SCH
[2022-05-02] MEDS ORDERED: ACETAMINOPHEN 325 MG TAB PO PRN (00:15)
[2022-05-02] MEDS: LEVALBUTEROL HCL SOLN NEBU 0.63 MG/3 ML NEB INH SCH ×2 (00:15→06:37)
[2022-05-02 01:34] VITALS: BP 127/96
[2022-05-02 05:23] LABS: BASOPHILS % 0.2 % (0.0-1.0); EOSINOPHILS % 0.2 % (0.0-6.0); HEMATOCRIT 38.6 % (34.2-44.1); HEMOGLOBIN 11.1 g/dL (12.0-16.0); LYMPHOCYTES # (AUTO) 1.1 (1.0-3.2); LYMPHOCYTES % 12.5 % (18.0-39.1); MEAN CORPUSCULAR HEMOGLOBIN 28.2 pg (28-32); MEAN CORPUSCULAR HGB CONC 28.8 g/dL (31-35); MONOCYTES # (AUTO) 1.1 (0.2-0.8); MONOCYTES % 11.9 % (4.4-11.3); NEUTROPHILS # (AUTO) 6.6 (2.1-6.9); NEUTROPHILS % 74.7 % (38.7-80.0); PLATELET COUNT 184 x10e3/uL (140-360); RED BLOOD COUNT 3.94 x10e6/uL (3.6-5.1); RED CELL DISTRIBUTION WIDTH 13.8 % (11.7-14.4)
[2022-05-02 05:35] VITALS: BP 136/48
[2022-05-02] MEDS ORDERED: METHYLPREDNISOLONE SOD SUCC 40 MG/ML VIAL 1ML IV SCH (06:00)
[2022-05-02 06:01] LABS: ANION GAP 12.9 mmol/L (8-16); CALCIUM 8.5 mg/dL (8.4-10.2); CREATININE, SERUM 0.87 mg/dL (0.57-1.11); POTASSIUM 3.9 mmol/L (3.5-5.1)
[2022-05-02 08:02] VITALS: BP 126/73
[2022-05-02 08:05] VITALS: BP 126/73
[2022-05-02] MEDS ORDERED: ASPIRIN 81 MG CHEW TAB PO SCH (09:00)
[2022-05-02] MEDS ORDERED: CLOPIDOGREL BISULFATE 75 MG TAB PO SCH (09:00)
[2022-05-02] MEDS ORDERED: BENZONATATE 100 MG CAP PO SCH (09:00)
== END 2022-05-02 10:29 | disposition home or self-care (01) ==
LOC: ER 11:00 → ERHOLD 12:35 → MED/SURG2 17:56
PROVIDERS: ADMIT Internal Medicine; ATTEND Internal Medicine
DX: J69.0 Pneumonitis due to inhalation of food and vomit (principal); F03.90 Unspecified dementia, unspecified severity, without behavioral disturbance, psychotic disturbance, mood disturbance, and anxiety; J44.9 Chronic obstructive pulmonary disease, unspecified; K21.9 Gastro-esophageal reflux disease without esophagitis; I25.10 Atherosclerotic heart disease of native coronary artery without angina pectoris; J45.909 Unspecified asthma, uncomplicated; Z95.810 Presence of automatic (implantable) cardiac defibrillator; Z96.653 Presence of artificial knee joint, bilateral; I11.0 Hypertensive heart disease with heart failure; I50.32 Chronic diastolic (congestive) heart failure; E78.5 Hyperlipidemia, unspecified; E11.69 Type 2 diabetes mellitus with other specified complication; I48.0 Paroxysmal atrial fibrillation; Z79.01 Long term (current) use of anticoagulants; E07.9 Disorder of thyroid, unspecified; I77.9 Disorder of arteries and arterioles, unspecified; Z86.73 Personal history of transient ischemic attack (TIA), and cerebral infarction without residual deficits; Z20.822 Contact with and (suspected) exposure to COVID-19; Z99.81 Dependence on supplemental oxygen; Z95.5 Presence of coronary angioplasty implant and graft; Z87.891 Personal history of nicotine dependence; N39.0 Urinary tract infection, site not specified
CPT/HCPCS: 36415 ×2; 70450; 71045; 71250; 80048; 80053; 81001; 84484; 85025 ×2; 93005; 94640 ×2; 94799 ×2; 99251; 99284; G0378 ×2; J0456; J0696 ×2; J2920; J7030; J7050; U0002

== ENCOUNTER → 2022-05-01 | Outpatient (CLI) | payer MEDICARE ==
[2022-04-29 11:14] LABS: BASOPHILS % 0.4 % (0.0-1.0); EOSINOPHILS # (AUTO) 0.1 (0.0-0.4); HEMATOCRIT 39.2 % (34.2-44.1); HEMOGLOBIN 11.4 g/dL (12.0-16.0); LYMPHOCYTES # (AUTO) 0.7 (1.0-3.2); MEAN CORPUSCULAR HEMOGLOBIN 28.2 pg (28-32); MEAN CORPUSCULAR HGB CONC 29.1 g/dL (31-35); MONOCYTES # (AUTO) 0.8 (0.2-0.8); MONOCYTES % 11.3 % (4.4-11.3); NEUTROPHILS # (AUTO) 5.4 (2.1-6.9); NEUTROPHILS % 77.2 % (38.7-80.0); PLATELET COUNT 232 x10e3/uL (140-360); RED BLOOD COUNT 4.04 x10e6/uL (3.6-5.1); RED CELL DISTRIBUTION WIDTH 13.9 % (11.7-14.4)
[~2022-05-01] MED LIST changes: +ALBUTEROL SULF 0.083% NEB SOLN 3 ML NEB ONE; +ALBUTEROL/IPRATROPIUM 3 ML NEB ONE; +FERROUS SULFAT325 MG PO; -IOPAMIDOL 370 MG/ML 100 ML INFUS..BTL INJ ONE; +OMEPRAZOLE40 MG PO
== END | disposition home or self-care (01) ==
LOC: RAD 07:28 → OR 07:28 → EDSTATUS 10:00
PROVIDERS: ATTEND Internal Medicine Gastroenterology
DX: R13.10 Dysphagia, unspecified (principal); R14.0 Abdominal distension (gaseous); R10.9 Unspecified abdominal pain; R19.7 Diarrhea, unspecified; R63.4 Abnormal weight loss; Z01.810 Encounter for preprocedural cardiovascular examination; Z01.812 Encounter for preprocedural laboratory examination; Z20.822 Contact with and (suspected) exposure to COVID-19; Z53.8 Procedure and treatment not carried out for other reasons
CPT/HCPCS: 0223U; 36415 ×2; 82948; 85025; 93005; 94640; 94799

== ENCOUNTER 2022-05-27 18:43 | Emergency (ER) | payer MEDICARE ==
[~2022-05-27] VITALS: Ht 144.8 cm; Wt 62.1 kg
[~2022-05-27 18:43] MED LIST changes: +FERROUS SULFAT325 MG PO; +OMEPRAZOLE40 MG PO
[2022-05-27 19:46] LABS: BASOPHILS % 0.2 % (0.0-1.0); EOSINOPHILS % 0.2 % (0.0-6.0); HEMATOCRIT 39.6 % (34.2-44.1); HEMOGLOBIN 11.8 g/dL (12.0-16.0); LYMPHOCYTES # (AUTO) 0.6 (1.0-3.2); LYMPHOCYTES % 12.5 % (18.0-39.1); MEAN CORPUSCULAR HEMOGLOBIN 29.1 pg (28-32); MEAN CORPUSCULAR HGB CONC 29.8 g/dL (31-35); MEAN CORPUSCULAR VOLUME 97.8 fL (81-99); MONOCYTES # (AUTO) 0.4 (0.2-0.8); MONOCYTES % 8.3 % (4.4-11.3); NEUTROPHILS # (AUTO) 3.8 (2.1-6.9); NEUTROPHILS % 78.4 % (38.7-80.0); PLATELET COUNT 195 x10e3/uL (140-360); RED BLOOD COUNT 4.05 x10e6/uL (3.6-5.1); RED CELL DISTRIBUTION WIDTH 15.9 % (11.7-14.4)
[2022-05-27 19:49] LABS: CLARITY,URINE CLEAR (CLEAR); COLOR,URINE YELLOW (YELLOW); LEUKOCYTE ESTERASE ,URINE NEGATIVE (NEGATIVE); NITRITE,URINE NEGATIVE (NEGATIVE); PROTEIN,URINE DIPSTICK NEGATIVE (NEGATIVE)
[2022-05-27 19:50] LABS: KETONES,URINE NEGATIVE (NEGATIVE); URINE UROBILINOGEN 0.2 mg/dL (0.2 - 1)
[2022-05-27 20:03] LABS: RBC,URINE 0-5 /HPF (0-5)
[2022-05-27 20:07] LABS: ALBUMIN 3.8 g/dL (3.5-5.0); ALBUMIN/GLOBULIN RATIO 1.5 (0.8-2.0); CALCIUM 9.2 mg/dL (8.4-10.2); CREATININE, SERUM 0.78 mg/dL (0.57-1.11)
[2022-05-27 20:13] LABS: CREATINE KINASE MB 3.8 ng/mL (0-5.0)
== END 2022-05-27 21:27 | disposition home or self-care (01) ==
LOC: ER 18:56
DX: R53.1 Weakness (principal); R94.31 Abnormal electrocardiogram [ECG] [EKG]; F03.90 Unspecified dementia, unspecified severity, without behavioral disturbance, psychotic disturbance, mood disturbance, and anxiety; J44.9 Chronic obstructive pulmonary disease, unspecified; I25.10 Atherosclerotic heart disease of native coronary artery without angina pectoris; I10 Essential (primary) hypertension; K21.9 Gastro-esophageal reflux disease without esophagitis; J45.909 Unspecified asthma, uncomplicated; Z96.653 Presence of artificial knee joint, bilateral
CPT/HCPCS: 36415; 71045; 80053; 81001; 82550; 82553; 84484; 85025; 93005; 99284

== ENCOUNTER → 2022-05-30 | Day surgery (SDC) | payer MEDICARE ==
[~2022-05-30] MED LIST changes: +KETAMINE HCL INJ 50 MG/ML 10 ML VIAL ONE; +LIDOCAINE HCL 2% LOCAL INJ 5 ML SDV VIAL INJ ONE; +PROPOFOL IV EMULSION 10 MG/ML 20 ML VIAL ONE
[2022-05-30 09:00] VITALS: BP 167/67
== END | disposition home or self-care (01) ==
LOC: OR 05:42
PROVIDERS: ATTEND Internal Medicine Gastroenterology
DX: K20.90 Esophagitis, unspecified without bleeding (principal); K29.70 Gastritis, unspecified, without bleeding; K29.80 Duodenitis without bleeding; K44.9 Diaphragmatic hernia without obstruction or gangrene; K21.9 Gastro-esophageal reflux disease without esophagitis; K58.9 Irritable bowel syndrome, unspecified; R19.5 Other fecal abnormalities; Z71.3 Dietary counseling and surveillance; R63.4 Abnormal weight loss; D64.9 Anemia, unspecified; I11.0 Hypertensive heart disease with heart failure; I50.9 Heart failure, unspecified; J44.9 Chronic obstructive pulmonary disease, unspecified; E78.5 Hyperlipidemia, unspecified; I25.2 Old myocardial infarction; M54.2 Cervicalgia; M25.519 Pain in unspecified shoulder; Z99.81 Dependence on supplemental oxygen; Z79.02 Long term (current) use of antithrombotics/antiplatelets; Z79.82 Long term (current) use of aspirin; Z87.891 Personal history of nicotine dependence; Z95.0 Presence of cardiac pacemaker; Z95.818 Presence of other cardiac implants and grafts; Z86.73 Personal history of transient ischemic attack (TIA), and cerebral infarction without residual deficits; Z95.5 Presence of coronary angioplasty implant and graft
CPT/HCPCS: 43239; 43450; C9113; J2001; J2704

== ENCOUNTER 2022-05-31 22:52 | Emergency (ER) | payer MEDICARE, OTHER ==
[~2022-05-31] VITALS: Ht 144.8 cm; Wt 62.1 kg
[~2022-05-31 22:52] MED LIST changes: -KETAMINE HCL INJ 50 MG/ML 10 ML VIAL ONE; -LIDOCAINE HCL 2% LOCAL INJ 5 ML SDV VIAL INJ ONE; -PROPOFOL IV EMULSION 10 MG/ML 20 ML VIAL ONE
[2022-06-01 00:40] LABS: BASOPHILS % 0.3 % (0.0-1.0); EOSINOPHILS # (AUTO) 0.1 (0.0-0.4); EOSINOPHILS % 1.1 % (0.0-6.0); HEMATOCRIT 42.1 % (34.2-44.1); HEMOGLOBIN 12.1 g/dL (12.0-16.0); LYMPHOCYTES # (AUTO) 1.1 (1.0-3.2); LYMPHOCYTES % 14.6 % (18.0-39.1); MEAN CORPUSCULAR HEMOGLOBIN 29.2 pg (28-32); MEAN CORPUSCULAR HGB CONC 28.7 g/dL (31-35); MEAN CORPUSCULAR VOLUME 101.4 fL (81-99); MONOCYTES # (AUTO) 0.9 (0.2-0.8); MONOCYTES % 12.8 % (4.4-11.3); NEUTROPHILS # (AUTO) 5.2 (2.1-6.9); NEUTROPHILS % 70.9 % (38.7-80.0); PLATELET COUNT 208 x10e3/uL (140-360); RED BLOOD COUNT 4.15 x10e6/uL (3.6-5.1); RED CELL DISTRIBUTION WIDTH 16.3 % (11.7-14.4)
[2022-06-01 00:45] LABS: INR 0.94; PARTIAL THROMBOPLASTIN TIME 26.5 seconds (23.8-35.5); PROTHROMBIN TIME 13.4 seconds (11.9-14.5)
[2022-06-01 01:02] LABS: CALCIUM 9.2 mg/dL (8.4-10.2); CREATININE, SERUM 0.88 mg/dL (0.57-1.11)
[2022-06-01] MEDS ORDERED: IOPAMIDOL 370 MG/ML 100 ML INFUS..BTL INJ ONE (01:07)
[2022-06-01 01:12] LABS: ALBUMIN 3.6 g/dL (3.5-5.0); ALBUMIN/GLOBULIN RATIO 1.2 (0.8-2.0)
== END 2022-06-01 01:30 | disposition other institution (70) ==
LOC: ER 23:02
DX: S06.6X0A Traumatic subarachnoid hemorrhage without loss of consciousness, initial encounter (principal); S51.812A Laceration without foreign body of left forearm, initial encounter; S80.212A Abrasion, left knee, initial encounter; W01.0XXA Fall on same level from slipping, tripping and stumbling without subsequent striking against object, initial encounter; Y93.01 Activity, walking, marching and hiking; Y92.091 Bathroom in other non-institutional residence as the place of occurrence of the external cause; I10 Essential (primary) hypertension; J44.9 Chronic obstructive pulmonary disease, unspecified; J45.909 Unspecified asthma, uncomplicated; K21.9 Gastro-esophageal reflux disease without esophagitis; Z99.81 Dependence on supplemental oxygen; I25.2 Old myocardial infarction
CPT/HCPCS: 36415; 70450; 71260; 72125; 73030; 73060; 73080; 73502; 73552; 73562; 74177; 80053; 85025; 85610; 85730; 99284; Q9967

== ENCOUNTER → 2022-06-18 | Outpatient (CLI) | payer MEDICARE | LOC: DX 10:11 | PROVIDERS: ATTEND Internal Medicine Gastroenterology | DX: R13.19 Other dysphagia (principal) | CPT/HCPCS: 74220 ==

== ENCOUNTER 2022-11-06 13:32 | Emergency (ER) | payer MEDICARE ==
[~2022-11-06] VITALS: Ht 137.2 cm; Wt 41.5 kg
[2022-11-06] MEDS ORDERED: LEVOFLOXACIN750 MG PO (15:42)
[2022-11-06] MEDS ORDERED: PREDNISONE20 MG PO (15:43)
[2022-11-06] MEDS ORDERED: FUROSEMIDE INJ 10 MG/ML 4 ML VIAL IV ONE (15:45)
[2022-11-06] MEDS ORDERED: FUROSEMIDE INJ 10 MG/ML 4 ML VIAL ONE (16:07)
[2022-11-06 16:15] VITALS: BP 141/62
== END 2022-11-06 16:15 | disposition home or self-care (01) ==
LOC: FSED 14:09
DX: R05.9 Cough, unspecified (principal); J44.1 Chronic obstructive pulmonary disease with (acute) exacerbation; I50.9 Heart failure, unspecified; I48.91 Unspecified atrial fibrillation; Z99.81 Dependence on supplemental oxygen; Z79.899 Other long term (current) drug therapy; I10 Essential (primary) hypertension; I25.2 Old myocardial infarction; Z95.810 Presence of automatic (implantable) cardiac defibrillator; Z96.653 Presence of artificial knee joint, bilateral
CPT/HCPCS: 71046; 80053; 81003; 82553; 83880; 84484; 85025; 85379; 93005; 99284; J1940

== ENCOUNTER 2023-03-04 16:47 | Emergency (ER) | payer MEDICARE ==
[~2023-03-04] VITALS: Ht 137.2 cm; Wt 41.3 kg
[~2023-03-04 16:47] MED LIST changes: +LEVOFLOXACIN750 MG PO; +PREDNISONE20 MG PO
[2023-03-04 18:22] LABS: BASOPHILS % 0.3 % (0.0-1.0); EOSINOPHILS % 0.1 % (0.0-6.0); HEMATOCRIT 38.8 % (34.2-44.1); HEMOGLOBIN 12.2 g/dL (12.0-16.0); LYMPHOCYTES # (AUTO) 0.7 (1.0-3.2); LYMPHOCYTES % 6.1 % (18.0-39.1); MEAN CORPUSCULAR HEMOGLOBIN 30.7 pg (28-32); MEAN CORPUSCULAR HGB CONC 31.4 g/dL (31-35); MEAN CORPUSCULAR VOLUME 97.5 fL (81-99); MONOCYTES # (AUTO) 1.2 (0.2-0.8); MONOCYTES % 10.6 % (4.4-11.3); NEUTROPHILS # (AUTO) 9.6 (2.1-6.9); NEUTROPHILS % 82.6 % (38.7-80.0); PLATELET COUNT 221 x10e3/uL (140-360); RED BLOOD COUNT 3.98 x10e6/uL (3.6-5.1); RED CELL DISTRIBUTION WIDTH 14.1 % (11.7-14.4)
[2023-03-04] MEDS ORDERED: Morphine 2mg Syringe 2 MG/ML SYR IV STA (18:32)
[2023-03-04 18:34] LABS: ALBUMIN 3.2 g/dL (3.5-5.0); ALBUMIN/GLOBULIN RATIO 1.1 (0.8-2.0); ANION GAP 13.6 mmol/L (8-16); CALCIUM 9.4 mg/dL (8.4-10.2); CREATININE, SERUM 0.73 mg/dL (0.57-1.11); POTASSIUM 3.6 mmol/L (3.5-5.1)
[2023-03-04] MEDS ORDERED: IOPAMIDOL 370 MG/ML 100 ML INFUS..BTL INJ ONE (18:42)
[2023-03-04 22:36] VITALS: BP 121/70; PULSE 84; RESP 17; TEMP 98.3; O2SAT 98
== END 2023-03-04 22:50 | disposition home or self-care (01) ==
LOC: ER 16:55
DX: R07.89 Other chest pain (principal); I10 Essential (primary) hypertension; J44.9 Chronic obstructive pulmonary disease, unspecified; K21.9 Gastro-esophageal reflux disease without esophagitis; I25.2 Old myocardial infarction; Z95.810 Presence of automatic (implantable) cardiac defibrillator; Z96.653 Presence of artificial knee joint, bilateral; I51.7 Cardiomegaly; Z20.822 Contact with and (suspected) exposure to COVID-19
CPT/HCPCS: 0223U; 36415; 71260; 80053; 82550; 83690; 83880; 84484; 85025; 93005; 99284; J2270; Q9967

== ENCOUNTER → 2024-12-01 | Day surgery (SDC) | payer MEDICARE ==
[2024-11-25 11:53] LABS: BASOPHILS % 0.1 % (0.0-1.0); EOSINOPHILS # (AUTO) 0.2 (0.0-0.4); EOSINOPHILS % 2.1 % (0.0-6.0); HEMATOCRIT 31.8 % (34.2-44.1); HEMOGLOBIN 9.3 g/dL (12.0-16.0); LYMPHOCYTES % 11.7 % (18.0-39.1); MEAN CORPUSCULAR HGB CONC 29.2 g/dL (31-35); MEAN CORPUSCULAR VOLUME 92.4 fL (81-99); MONOCYTES % 12.2 % (4.4-11.3); NEUTROPHILS % 73.4 % (38.7-80.0); PLATELET COUNT 262 x10e3/uL (140-360); RED BLOOD COUNT 3.44 x10e6/uL (3.6-5.1); RED CELL DISTRIBUTION WIDTH 14.3 % (11.7-14.4); WHITE BLOOD COUNT 8.18 x10e3/uL (4.8-10.8)
[2024-11-25 12:21] LABS: ANION GAP 18.1 mmol/L (8-16); CALCIUM 9.2 mg/dL (8.4-10.2); CREATININE, SERUM 0.97 mg/dL (0.57-1.11); POTASSIUM 4.1 mmol/L (3.5-5.1)
[~2024-12-01] MED LIST changes: +ASPIRIN81 MG PO; +DICYCLOMINE HCL10 MG PO; +HYDROCODONE-AC473 M1; +IPRAT-ALBUT 0.5-3 ML; +MUCINEX600 MG PO; +PANTOPRAZOLE SO40 MG PO; +SINGULAIR10 MG PO; +ZYRTEC10 MG; +[UNRECOGNIZED DRUG - OTHER]
[2024-12-01] MEDS: LACTATED RINGER'S 1,000 ML ONE (10:51)
== END | disposition home or self-care (01) ==
LOC: OR 09:48
PROVIDERS: ATTEND Student in an Organized Health Care Education/Training Program
DX: S22.070A Wedge compression fracture of T9-T10 vertebra, initial encounter for closed fracture (principal); Z01.812 Encounter for preprocedural laboratory examination; Z01.818 Encounter for other preprocedural examination; Z53.21 Procedure and treatment not carried out due to patient leaving prior to being seen by health care provider
CPT/HCPCS: 36415; 71046; 80048; 85025; 93005; J7121

== ENCOUNTER 2025-03-20 13:36 | Emergency (ER) | payer MEDICARE ==
[~2025-03-20] VITALS: Ht 137.2 cm; Wt 44.9 kg
[2025-03-20 13:41] VITALS: PULSE 62; RESP 18; TEMP 97.8; O2SAT 94
[2025-03-20] MEDS ORDERED: CLINDAMYCIN HC150 MG PO (13:56)
== END 2025-03-20 13:59 | disposition home or self-care (01) ==
LOC: ER 13:43
DX: Z48.01 Encounter for change or removal of surgical wound dressing (principal); I10 Essential (primary) hypertension; J44.9 Chronic obstructive pulmonary disease, unspecified; K21.9 Gastro-esophageal reflux disease without esophagitis; M19.09 Primary osteoarthritis, other specified site; J45.909 Unspecified asthma, uncomplicated; I25.2 Old myocardial infarction
CPT/HCPCS: 99283